=== PATIENT | female | born 1955 | race Caucasian/White ===

== ENCOUNTER 2016-10-20 11:36 | Inpatient (IN) | payer MEDICARE ==
[~2016-10-20] VITALS: Ht 144.8 cm; Wt 48.5 kg
[~2016-10-20 11:36] MED LIST: ASPI81EC97 PO; CLON0.1T78 PO; INSU100S22 SC; SEVE800T PO; SIMV20TA6 PO; [UNRECOGNIZED DRUG - CODE] PO
[2016-10-20 11:44] VITALS: BP 155/77
--- NOTE | 2016-10-20 11:57 | NUR ---
Patient ambulated with assistance to bed 3.
--- NOTE | 2016-10-20 12:23 | NUR ---
61F C/O BLUNT HEAD TRAUMA, TO FOREHEAD X 1 DAYS; PT ADMITS FALLING BUT UNABLE TO REMEMBER HOW IT HAPPENED OR WHERE IT HAPPENED; PT HAS HX OF DEMENTIA; ACCORDING TO THE DAUGHTER (MOLINA), HER AND HER FAMILY NOTED HEMATOMAS TO BILATERAL SIDES OF FOREHEAD WITH ECCHYMOSES YESTERDAY AROUND THE TIME PT GOES TO DIALYSIS, TODAY PT AWOKE TODAY WITH BL EYES CLOSED WITH DEEP ECCYHMOSES; ACCORDING TO FAMILY, PT IS WITHIN NORMAL NEURO BASELINE; PT IS AAOX4, PT TALKING IN FULL SENTENCES; NO ACUTE NEURO DEFICITS AT THIS TIME; RR ARE EVEN AND UNLABORED; PT DENIES ANY SOB OR CP, PATIENT DENIES ANY N/V/D; MD ROSS BY BEDSIDE EXAMINING PT
--- NOTE | 2016-10-20 12:25 | NUR ---
PT TO CT VIA CRISPIN WITH SUPPLY CHAIN DIRECTOR
--- NOTE | 2016-10-20 12:37 | NUR ---
PT BACK FROM CT VIA GURDOUGLAS WITH MIDDLEWARE ADMINISTRATOR
[2016-10-20 12:52] LABS: BASOPHILS # (AUTO) 0.1 K/uL (0.00-0.22); BASOPHILS % (AUTO) 0.8 % (0.0-2.0); EOSINOPHILS # (AUTO) 0.5 K/uL (0-0.4); EOSINOPHILS % (AUTO) 7.4 % (0.0-4.0); HEMATOCRIT 35.4 % (36-48); HEMOGLOBIN 11.3 g/dL (12.0-16.0); LYMPHOCYTES # (AUTO) 0.9 K/uL (2.5-16.5); LYMPHOCYTES % (AUTO) 14.7 % (20.5-51.1); MEAN CORPUSCULAR HEMOGLOBIN 28 pg (27-31); MEAN CORPUSCULAR HGB CONC 32 g/dL (33-37); MEAN CORPUSCULAR VOLUME 89 fL (80-94); MONOCYTES # (AUTO) 0.8 K/uL (0.8-1.0); MONOCYTES % (AUTO) 12.4 % (1.7-9.3); NEUTROPHILS # (AUTO) 4.1 K/uL (1.8-7.7); NEUTROPHILS % (AUTO) 64.7 % (42.2-75.2); PLATELET COUNT (AUTO) 143 K/uL (140-450); RED BLOOD CELL COUNT(AUTO) 3.98 MIL/uL (4.20-5.40); RED CELL DISTRIBUTION WIDTH 13.8 % (11.6-13.7); WHITE BLOOD COUNT (AUTO) 6.4 K/uL (4.8-10.8)
--- NOTE | 2016-10-20 12:54 | NUR ---
PT STATES DOES NOT NEED TO URINATE; FAMILY STATES PT IS ON DIALYSIS AND ONLY PRODUCES URINE IN THE MORNING AND AT NIGHT; ER MD DR. MEDINA NOTIFIED; DR. MEDINA STATES NO URINE NEEDED FROM PATIENT AT THIS TIME; PT POSITIONED FOR COMFORT; WILL CONTINUE T O MONITOR.
[2016-10-20 13:01] LABS: ANION GAP 6.8 (8-16); CARBON DIOXIDE 37.1 mmol/L (21-32); CREATININE 3.4 mg/dL (0.6-1.3); POTASSIUM 3.9 mmol/L (3.5-5.1)
--- NOTE | 2016-10-20 13:02 | NUR ---
PATIENT RESTING IN GURNEY; PATIENT DENIES ANY CP, SOB; NO ACUTE NEURO DEFICITS NOTED; PT AAOX4 WITH NO COMPLAINTS
[2016-10-20 13:04] LABS: PROTHROMBIN TIME 11.4 secs (10.8-13.4)
[2016-10-20 13:06] LABS: ALBUMIN 3.3 g/dL (3.4-5.0); TOTAL BILIRUBIN 0.6 mg/dL (0.0-1.0)
--- NOTE | 2016-10-20 13:11 | NUR ---
GARTH PHOENIX RN NOTIFIED JENNIFFER PHOENIX DIRECTOR OF LINE TESTER AND IS AWARE OF SITUATION AND PATIENT...NO FURTHER FOLLOW UP IS NEEDED ACCORDING; PATIENT HAS HX OF FALLS AND WITH DEMENITA; ER MD ROSS NOTIFIED AND AWARE
--- NOTE | 2016-10-20 14:27 | NUR ---
Patient appears to be resting comfortably in bed. Respirations even and unlabored. No acute distress noted. Family by bedside.
[2016-10-20] MEDS ORDERED: ACETAMINOPHEN 325 MG TAB PO PRN (15:30)
[2016-10-20] MEDS ORDERED: ONDANSETRON 4 MG/2 ML VIAL IVP PRN (15:30)
[2016-10-20] MEDS ORDERED: HYDROcodone/APAP 7.5/325 MG 1 TAB PO PRN (15:30)
--- NOTE | 2016-10-20 15:48 | NUR ---
PULSE OX IS 93%-94% ON RA; PATIENT PUT ON OXYGEN 2L NC; MD ABBOTT/RESIDENTS NOTIFIED AND AWARE; S/P OXYGEN ADMINISTRATION, PT'S PULSE OX IS 99%
--- NOTE | 2016-10-20 15:51 | NUR ---
Patient will be admitted to care of Mauro. Admited to TEle. Will go to room 121B. Belongings list completed. Report to Alvaro PUTNAM.
[2016-10-20 16:00] VITALS: BP 187/78
--- NOTE | 2016-10-20 16:00 | NUR ---
PT ARRIVED FROM ER VIA GURNEY, PT IS AAOX4 [place] SPEAKING, ON 02 2L VIA NC, IV TO RIGHT AC 20G SALINE LOCK PATENT AND INTACT, TWO FOREHEAD HEMATOMAS, PT STATES SHE FELL BUT DOESN'T REMEMBER HOW, MULTIPLE SKIN TEAR TO ALL EXTREMITIES PT STATES SHE GETS ITCHY FROM HEMODIALYSIS, INITIAL ASSESSMENT COMPLETED, DAUGHTER RAYMON AT BEDSIDE, ALL SAFETY PRECAOUTIONS MET. CALL LIGHT WITHIN REACH. WILL CONTINUE TO MONITOR.
[2016-10-20] MEDS ORDERED: MECLIZINE 25 MG TAB PO PRN (16:15)
[2016-10-20] MEDS ORDERED: DEXTROSE 50% 50 ML SYR IVP PRN (16:15)
[2016-10-20 16:22] LABS: CHOL/HDL RATIO 2.6 (1-4.5); FREE T4 (FREE THYROXINE) 1.17 ng/dL (0.76-1.46); MAGNESIUM 1.9 mg/dL (1.8-2.4); PHOSPHORUS 3.8 mg/dL (2.5-4.9); THYROID STIMULATING HORMONE 1.16 uIU/mL (0.34-3.74)
[2016-10-20] MEDS: hydrALAZINE 25 MG TAB PO SCH (16:33)
[2016-10-20] MEDS: SEVELAMER CARBONATE 800 MG TAB PO SCH (16:36)
[2016-10-20] MEDS: BLOOD GLUCOSE MONITORING 1 DEV DEV FS SCH ×2 (16:57→21:30)
[2016-10-20] MEDS ORDERED: SEVELAMER HCL 2400 MG PO SCH (17:00)
--- NOTE | 2016-10-20 17:30 | NUR ---
BP REASSESSED 168/73, HR 63MO NOTIFIED, PT CURRENTLY RESTING IN BED, PT STATES NO PAIN. ALL SAFETY PRECAUTIONS MET.
--- NOTE | 2016-10-20 18:15 | NUR ---
CHECKED IN ON PT, PT RESTING COMFORTABLY IN BED EATING DINNER. PT NEEDS ASSISTANCE WITH EATING BECAUSE SHE CANNOT SEE WELL. ALL SAFETY PRECAUTIONS MET, CALL LIGHT WITHIN REACH, WILL CONTINUE TO MONITOR.
--- NOTE | 2016-10-20 19:30 | NUR ---
ENDORSED PLAN OF CARE TO NIGHT NURSE, PT IN STABLE CONDITION, NO S/S OF DISTRESS NOTED, CALL LIGHT WITHIN REACH.
[2016-10-20 20:00] VITALS: BP 164/67
[2016-10-20] MEDS ORDERED: INSULIN GLARGINE HUM REC ANLOG U SCH (21:00)
[2016-10-20] MEDS: INSULIN DETEMIR 100 UNITS/ML 10 ML VIAL SUBQ SCH (21:00)
[2016-10-20] MEDS: DOCUSATE SODIUM 100 MG GELCAP PO SCH (21:37)
[2016-10-20] MEDS: INSULIN LISPRO SLIDING SCALE 100 UNITS/ML VIAL SUBQ PRN (21:40)
--- NOTE | 2016-10-20 21:41 | NUR ---
ULTRASOUND OF CAROTID AND BLE DONE, DUE PO MEDICATION TAKEN, PT SLEEPY, DOESN'T WANT TO EAT AT THIS TIME, HOLD LEVIMIR AT THIS TIME FOR BLOOD SUGAR OF 173, INSULIN COVERAGE GIVEN, ALL NEEDS ATTENDED.
--- NOTE | 2016-10-20 22:10 | NUR ---
WITH ORDER FOR HEMODIALYSIS IN AM BY DR RAPP, [facility] NOTIFIED BY CHARGE NURSE JOSHUA AND SHE SPOKE TO HORACE.
[2016-10-21] VITALS (7 sets, daily range): BP systolic 132–192; BP diastolic 57–92
--- NOTE | 2016-10-21 | NUR ---
PT SLEEPING, EASILY AROUSABLE, VITAL SIGNS TAKEN, BP SLIGHTLY ELEVATED, ASYMPTOMATIC, DENIES ANY PAIN, PT ASKING FOR JUICE, APPLE JUICE GIVEN, TOLERATED WELL, CONTINUE TO MONITOR CLOSELY.
--- NOTE | 2016-10-21 00:15 | NUR ---
REPORT GIVEN TO INDY LOZOYA FOR CONTINUITY OF CARE.
--- NOTE | 2016-10-21 02:30 | NUR ---
SLEEPING. NO RESTLESSNESS.
--- NOTE | 2016-10-21 04:00 | NUR ---
SCD APPLIED TO BILAT LOWER EXTREMITIES, DVT PROPHYLAXIS.
[2016-10-21] MEDS: BLOOD GLUCOSE MONITORING 1 DEV DEV FS SCH ×4 (05:52→20:32)
--- NOTE | 2016-10-21 06:38 | NUR ---
SLEEPING. NEEDS ANTICIPATED AND MET.
--- NOTE | 2016-10-21 07:30 | NUR ---
RECEIVED REPORT FROM PM NURSE FOR CONTINUITY OF CARE. PT ALERT AND ORIENTED X1. PT IS COOPERATIVE. INITIAL ASSESSMENT DONE. RESP EVEN AND UNLABORED. SKIN IS WARM AND DRY. SWELLING AND BRUISING ON BOTH EYES. IV IS PATENT WITH NO REDNESS AND SWELLING. LEFT UPPER ARM DIALYSIS SHUNT, THRILL PRESENT. PLAN OF CARE DISCUSSED. PT VERBALIZED UNDERSTANDING. SAFETY MEASURES IN PLACED. CALL LIGHT WITHIN REACH. BED ON LOW POSITION. WILL CONTINUE TO MONITOR. Addendum: 10/21/16 at 1911 by Ori Ralph RN PT HAS ABRASIONS THROUGHOUT THE BODY. HEMATOMA ON LEFT FOREHEAD.
[2016-10-21] MEDS: DOCUSATE SODIUM 100 MG GELCAP PO SCH ×2 (08:17→20:39)
[2016-10-21] MEDS: SEVELAMER CARBONATE 800 MG TAB PO SCH ×3 (08:17→16:40)
[2016-10-21] MEDS: hydrALAZINE 25 MG TAB PO SCH ×3 (08:18→16:41)
[2016-10-21] MEDS: SIMVASTATIN 20 MG TAB PO SCH (08:19)
[2016-10-21] MEDS ORDERED: cloNIDine 0.1 MG TAB PO SCH (09:00)
--- NOTE | 2016-10-21 10:00 | NUR ---
ECHOCARDIOGRAM AT BEDSIDE.
--- NOTE | 2016-10-21 10:39 | NUR ---
REASSESSED PT'S BP, 183/79. NOTIFIED DR RAPP. PRN CLONIDINE ORDER RECEIVED. DIALYSIS NURSE TO ARRIVE BETWEEN 12-1 FOR DIALYSIS.
[2016-10-21] MEDS ORDERED: cloNIDine 0.1 MG TAB PO PRN (10:45)
--- NOTE | 2016-10-21 10:57 | NUR ---
CALLED [facility] AND SPOKE WITH DANIEL. SHE SAID THE REVIEW JUST GOES TO HER, NOT THE [facility]. FAXED INITIAL REVIEW TO [phone]. PHONE DANIEL [phone]
--- NOTE | 2016-10-21 11:19 | NUR ---
PATIENT HAS BEEN SCREENED AND CATEGORIZED HIGH NUTRITION RISK. PATIENT WILL BE SEEN WITHIN 1-2 DAYS OF ADMISSION. 10/21/16-10/22/[address]
[2016-10-21] MEDS: INSULIN LISPRO SLIDING SCALE 100 UNITS/ML VIAL SUBQ PRN ×2 (12:02→20:40)
--- NOTE | 2016-10-21 12:59 | NUR ---
TELEPHONE CONSENT FOR HEMODIALYSIS OBTAINED FROM DAUGHTER MOLINA KAM [phone] BY MYSELF AND INDY ADAM.
--- NOTE | 2016-10-21 13:12 | NUR ---
DIALYSIS NURSE AT BEDSIDE.
--- NOTE | 2016-10-21 13:48 | NUR ---
10/21/16 RD INITIAL ASSESSMENT COMPLETED PLEASE REFER TO NUTRITION ASSESSMENT UNDER CARE ACTIVITY FOR ESTIMATED NUTRITIONAL NEEDS. 1. CHANGE DIET TO - RENAL 80 G PROTEIN, 60 G CONSISTENT CARBOHYDRATE, PUREE DIET 2. ADD NEPHROVITE 1X/DAILY 3. RD TO FOLLOW-UP 3-5 DAYS, MODERATE RISK SALVATORE IVEY, DON
--- NOTE | 2016-10-21 15:28 | NUR ---
ADULT DIRECTOR ERP TUCKER MORE HERE, DR SALTER CALLED TO NURSING STATION.
--- NOTE | 2016-10-21 16:20 | NUR ---
DIALYSIS DONE. 3100 ML OUT PER MANUFACTURING RECRUITER VU.
--- NOTE | 2016-10-21 17:58 | NUR ---
RAC PIV SITE LEAKING BLOOD, DC'D, CATH TIP INTACT, BLEEDING CONTROLLED, NEW IV STARTED TO RIGHT UPPER ARM 20G, PT SARITHA WELL.
[2016-10-21 18:10] LABS: BASOPHILS # (AUTO) 0.1 K/uL (0.00-0.22); BASOPHILS % (AUTO) 1.4 % (0.0-2.0); EOSINOPHILS # (AUTO) 0.5 K/uL (0-0.4); EOSINOPHILS % (AUTO) 8.3 % (0.0-4.0); HEMATOCRIT 39.7 % (36-48); HEMOGLOBIN 12.9 g/dL (12.0-16.0); LYMPHOCYTES % (AUTO) 14.8 % (20.5-51.1); MEAN CORPUSCULAR HEMOGLOBIN 29 pg (27-31); MEAN CORPUSCULAR HGB CONC 33 g/dL (33-37); MEAN CORPUSCULAR VOLUME 89 fL (80-94); MONOCYTES # (AUTO) 0.9 K/uL (0.8-1.0); MONOCYTES % (AUTO) 13.6 % (1.7-9.3); NEUTROPHILS # (AUTO) 4.1 K/uL (1.8-7.7); NEUTROPHILS % (AUTO) 61.9 % (42.2-75.2); PLATELET COUNT (AUTO) 145 K/uL (140-450); RED BLOOD CELL COUNT(AUTO) 4.46 MIL/uL (4.20-5.40); RED CELL DISTRIBUTION WIDTH 13.6 % (11.6-13.7); WHITE BLOOD COUNT (AUTO) 6.6 K/uL (4.8-10.8)
[2016-10-21 18:29] LABS: ANION GAP 13.4 (8-16); CARBON DIOXIDE 29.5 mmol/L (21-32); CREATININE 2.5 mg/dL (0.6-1.3); MAGNESIUM 1.7 mg/dL (1.8-2.4); POTASSIUM 3.9 mmol/L (3.5-5.1)
--- NOTE | 2016-10-21 19:25 | NUR ---
RECEIVED FROM AM RN IN BED SLEEPING. WAKES UP WHEN TOUCHED. PT. BEING TESTED FOR SWALLOW EVALUATION AT THIS TIME/CECILE. PT. ABLE TO VERBALIZE SIMPLE NEEDS. TELEMETRY MONITORING. FALL PRECAUTIONS. BED ALARM ON.
--- NOTE | 2016-10-21 19:32 | NUR ---
REPORT GIVEN TO PM NURSE DARELL. PT IS IN STABLE CONDITION
--- NOTE | 2016-10-21 19:55 | NUR ---
PER SWALLOW EVALUATION /CECILE PT. CAN SWALLOW AND THAT DIET NEEDS TO BE MECHANICAL SOFT AND THIN LIQUIDS. PT. NEEDS ASSIST IN FEEDING.
[2016-10-21] MEDS: INSULIN DETEMIR 100 UNITS/ML 10 ML VIAL SUBQ SCH (20:36)
[2016-10-21] MEDS: cloNIDine 0.1 MG TAB PO SCH (20:38)
--- NOTE | 2016-10-21 20:39 | NUR ---
CUSTOMS MANAGER NOTE [phone] S: Bedside swallow evaluation complete. Please refer to CUSTOMS MANAGER report for H+P. CUSTOMS MANAGER consulted d/t reports difficulty chewing food. Pt seen at bedside, awake and alert x2. Pleasant and cooperative, Nigerien speaking, able to communicate wants and needs, able to follow 1-step directions. O: Pt seen for swallow evaluation. Pain: No c/o pain. OME: WFL muscle ROM/Tone. DENTITION: Endentulous. CONSISTENCIES EVALUATED: Thin, puree, mech soft, regular texture. ORAL PHASE: Good bolus acceptance/containment. WFL labial seal around straw and spoon. WFL bolus manipulation/mastication of thin, puree, and mech soft. Decreased bolus breakdown of regular texture, slowed oral prep noted. WFL a-p transit of all bolus, no oral residues remained s/p swallow. PHARYNGEAL PHASE: No overt s/sx of aspiration noted w/any tested consistency. Prompt swallow initiation. WFL laryngeal elevation palpated. A: Mild oral impairment 2/2 decreased bolus breakdown of regular solids, WFL pharyngeal phase 2/2 no overt s/sx of aspiration noted. P: Recommend mech soft/chopped + thin liquids for all PO intake w/standard safe swallow precautions. Nursing to continue to follow, ST f/u not indicated. Precautions posted at [facility]: Educated RN Elyssa and pt on recommendations, voiced understanding. G8996: CI (1-19%) G8997: CI (1-19%) G8998: CI (1-19%) Swallow NOMS 6
[2016-10-22] VITALS (7 sets, daily range): BP systolic 111–161; BP diastolic 55–89
--- NOTE | 2016-10-22 00:08 | NUR ---
PT. KEPT CLEAN AND DRY. NEEDS ANTICIPATED AND MET. SLEEPING AT THIS TIME. CALL LIGHT WITH IN REACH.
--- NOTE | 2016-10-22 04:00 | NUR ---
PT. SLEEPING. NO RESTLESSNESS. WAKES UUP EASILY WHEN TOUCHED. TELEMETRY MONITORING.
--- NOTE | 2016-10-22 05:39 | NUR ---
BLOOD SUGAR CHECK PER FINGERSTICK WAS 31.
--- NOTE | 2016-10-22 05:41 | NUR ---
DOUBLE CHECKED BLOOD SUGAR PER FINGERSTICK WAS 27. INFORMED CHARGE NURSE. WILL MEDICATE WITH D50 ORDERED/PROTOCOL. PT. ALERT AND AWAKE AT THIS TIME. ABLE TO VERBALIZE WELL.
[2016-10-22] MEDS: BLOOD GLUCOSE MONITORING 1 DEV DEV FS SCH ×4 (05:49→21:02)
--- NOTE | 2016-10-22 06:06 | NUR ---
BLOOD SUGAR CHECKED EARLIER AND BLOOD SUGAR LOW. INFORMED MD BOWERS RE: HYPOGLYCEMIA AND THAT PT. AWAKE AND ALERT. VERBALIZING WELL. GAVE D50 ORDERED. WILL RE-CHECK SUGAR.
--- NOTE | 2016-10-22 06:17 | NUR ---
BLOOD SUGAR RE-CHECKED PER FINGERSTICK IS 139. PT. AWAKE AND ALERT. NEEDS ALL ANTICIPATED. NO SOB. TELEMETRY MONITORING.
--- NOTE | 2016-10-22 07:27 | NUR ---
REPORT RECIEVED FROM GRAPHIC EDITOR DARELL, PT SLEEPING QUIETLY, RESP EVEN UNLABORED ON ROOM AIR, SKIN WARM DRY COLOR WNL, PT AROUSED EASILY BY VOICE, DENIES PAIN OR DISCOMFORT, PLAN OF CARE DISCUSSED, PT VERBALIZED FULL UNDERSTANDING, CALL REYES WITHIN REACH, SIDE RAILS UP, BED LOCKED IN LOW POSITION, WILL CONTINUE TO MONITOR.
[2016-10-22 07:29] LABS: BASOPHILS # (AUTO) 0.2 K/uL (0.00-0.22); BASOPHILS % (AUTO) 2.4 % (0.0-2.0); EOSINOPHILS # (AUTO) 0.3 K/uL (0-0.4); EOSINOPHILS % (AUTO) 4.4 % (0.0-4.0); HEMATOCRIT 35.1 % (36-48); HEMOGLOBIN 11.7 g/dL (12.0-16.0); LYMPHOCYTES # (AUTO) 1.3 K/uL (2.5-16.5); LYMPHOCYTES % (AUTO) 16.6 % (20.5-51.1); MEAN CORPUSCULAR HEMOGLOBIN 29 pg (27-31); MEAN CORPUSCULAR HGB CONC 33 g/dL (33-37); MEAN CORPUSCULAR VOLUME 88 fL (80-94); MONOCYTES # (AUTO) 0.8 K/uL (0.8-1.0); MONOCYTES % (AUTO) 9.8 % (1.7-9.3); NEUTROPHILS # (AUTO) 5.2 K/uL (1.8-7.7); NEUTROPHILS % (AUTO) 66.8 % (42.2-75.2); PLATELET COUNT (AUTO) 152 K/uL (140-450); RED BLOOD CELL COUNT(AUTO) 3.98 MIL/uL (4.20-5.40); RED CELL DISTRIBUTION WIDTH 13.9 % (11.6-13.7); WHITE BLOOD COUNT (AUTO) 7.8 K/uL (4.8-10.8)
[2016-10-22 07:52] LABS: ANION GAP 11.5 (8-16); CARBON DIOXIDE 29.9 mmol/L (21-32); CREATININE 3.5 mg/dL (0.6-1.3); POTASSIUM 3.4 mmol/L (3.5-5.1)
[2016-10-22 07:58] LABS: MAGNESIUM 1.9 mg/dL (1.8-2.4); PHOSPHORUS 3.5 mg/dL (2.5-4.9)
[2016-10-22] MEDS: DOCUSATE SODIUM 100 MG GELCAP PO SCH ×2 (08:08→21:02)
[2016-10-22] MEDS: SEVELAMER CARBONATE 800 MG TAB PO SCH ×3 (08:08→17:40)
[2016-10-22] MEDS: cloNIDine 0.1 MG TAB PO SCH ×2 (08:09→21:03)
[2016-10-22] MEDS: VIT-B COMP/VIT-C/FOLIC ACID 1 TAB PO SCH (08:10)
[2016-10-22] MEDS: hydrALAZINE 25 MG TAB PO SCH ×3 (08:10→17:00)
[2016-10-22] MEDS: SIMVASTATIN 20 MG TAB PO SCH (08:10)
--- NOTE | 2016-10-22 08:34 | NUR ---
AM MEDS GIVEN, PT ASSISTED WITH BREAKFAST, PT TOOK 95% OF BREAKFAST TRAY, SITTING UP IN BED IN NAD, CALL REYES WITHIN REACH, WILL CONTINUE TO MONTIOR
[2016-10-22] MEDS ORDERED: VIT-B COMP/VIT-C/FOLIC ACID 1 TAB PO SCH (09:00)
--- NOTE | 2016-10-22 09:40 | NUR ---
REPEAT BLOOD PRESSURE 150/59, PT RESTING QUIETLY IN NAD, IV SITE REDRESSED, AND WRAPPED, PT DENIES PAIN OR DISCOMFORT, NO IMMEDIATE NEEDS IDENTIFIED, WILL CONTINUE TO MONITOR.
--- NOTE | 2016-10-22 11:41 | NUR ---
FINGER STICK GLUCOSE 70, PT AROUSES EASILY, RESP EVEN UNLABORED IN NAD, SKIN WARM AND DRY, GRAPE JUICE AND CRAMBERRY JUICE GIVEN, PT SARITHA WELL, DR SALTER NOTIFIED. WILL RECHECK
--- NOTE | 2016-10-22 12:05 | NUR ---
PT TO BEDSIDE, PT AMBULATING DOWN THE HALLWAY
--- NOTE | 2016-10-22 12:30 | NUR ---
REPEAT BLOOD SUGAR 98, PT SITTING UP EATING LUNCH WITH ASSIST
--- NOTE | 2016-10-22 13:09 | NUR ---
PT CONSUMED 90% OF LUNCH TRAY WITH ASSIST. NO SWALLOWING PROBLEM NOTED.
--- NOTE | 2016-10-22 15:34 | NUR ---
PT SITTING UP DRINKING MILK. NO C/O PAIN OR DISCOMFORT, RESP EVEN UNLABORED, REMAINS ON RUBBER AND POUNDER, NO IMMEDIATE NEEDS IDENTIFIED AT THIS TIME, WILL CONTINUE TO MONITOR.
--- NOTE | 2016-10-22 16:45 | NUR ---
FINGER STICK GLUCOSE 108. NO INSULIN NEEDED.
--- NOTE | 2016-10-22 18:28 | NUR ---
PT SITTING UP EATING DINNER, PT ABLE TO SELF FEED WHEN PLACED IN FRONT OF HER. CONSUMED 100%^ OF DINNER.
--- NOTE | 2016-10-22 19:28 | NUR ---
REPORT GIVEN TO GRADE TEACHER NURSE, PT STABLE.
--- NOTE | 2016-10-22 19:30 | NUR ---
RECEIVED REPORT FROM AM NURSE. PT RESTING IN BED, AOX3, ABLE TO VERBALIZE NEEDS. NO S/S OF ACUTE DISTRESS. PERSONNEL SECURITY SPECIALIST IN PLACE. FISTULA NOTED ON LEFT ARM. MULTIPLE BRUISING AND HEMATOMA NOTED ON FACE AND FOREHEAD AND BODY. IV ACCESS ASYMPTOMATIC, PATENT AND INTACT. SALINE LOCKED. DISCUSSED AND REVIEWED PLAN OF CARE WITH PT. PT VERBALIZED UNDERSTANDING, WILL CONTINUE WITH CONSTANT REINFORCEMENT. ALL NEEDS MET. SAFETY MEASURES ENSURED. CALL LIGHT WITHIN REACH. WILL CONTINUE TO MONITOR.
[2016-10-22] MEDS ORDERED: INSULIN DETEMIR 100 UNITS/ML 10 ML VIAL SUBQ SCH ×2 (21:00)
--- NOTE | 2016-10-22 21:30 | NUR ---
BLOOD SUGAR 123, NO INSULIN COVERAGE NEEDED. CALLED DR LANDIN, MADE AWARE OF PT'S BLOOD SUGAR 123 AND DUE 25 UNITS LEVEMIR AT THIS TIME. STATED HE WILL LET ME KNOW WHETHER IT IS OK TO GIVE. HOLDING DUE LEVEMIR AT THIS TIME. ADMINISTERED REMAINING DUE MEDICATIONS WITH EDUCATION. PT VERBALIZED UNDERSTANDING. TOLERATED MEDS WELL. ALL NEEDS MET. SAFETY MEASURES ENSURED. CALL LIGHT WITHIN REACH. WILL CONTINUE TO MONITOR.
--- NOTE | 2016-10-22 23:20 | NUR ---
RECEIVED ORDERS TO GIVE 15 UNITS LEVEMIR SUBQ. RECHEKED BLOOD SUGAR, 116. CALLED DR LANDIN, MADE AWARE OF BLOOD SUGAR 116. STATED IT IS OK TO GIVE. ADMINISTERED 15 UNITS LEVEMIR ORDERED WITH EDUCATION AND EVENING SNACKS. PT VERBALIZED UNDERSTANDING, TOLERATED MED WELL. ALL NEEDS MET. SAFETY MEASURES ENSURED. CALL LIGHT WITHIN REACH. WILL CONTINUE TO MONITOR.
[2016-10-23] VITALS (7 sets, daily range): BP systolic 111–161; BP diastolic 48–79
--- NOTE | 2016-10-23 04:00 | NUR ---
PT SLEEPING COMFORTABLY. ALL NEEDS MET. SAFETY MEASURES ENSURED. CALL LIGHT WITHIN REACH. WILL CONTINUE TO MONITOR.
[2016-10-23] MEDS: BLOOD GLUCOSE MONITORING 1 DEV DEV FS SCH ×5 (06:00→21:58)
--- NOTE | 2016-10-23 06:00 | NUR ---
BLOOD SUGAR 69, SNACKS GIVEN. PT ASYMPTOMATIC, AROUSABLE AND ABLE TO COMMUNICATE WELL. WILL RECHECK BLOOD SUGAR.
[2016-10-23 06:57] LABS: BASOPHILS # (AUTO) 0.2 K/uL (0.00-0.22); BASOPHILS % (AUTO) 1.8 % (0.0-2.0); EOSINOPHILS # (AUTO) 0.5 K/uL (0-0.4); EOSINOPHILS % (AUTO) 5.3 % (0.0-4.0); HEMOGLOBIN 11.1 g/dL (12.0-16.0); LYMPHOCYTES # (AUTO) 1.4 K/uL (2.5-16.5); LYMPHOCYTES % (AUTO) 16.3 % (20.5-51.1); MEAN CORPUSCULAR HEMOGLOBIN 29 pg (27-31); MEAN CORPUSCULAR HGB CONC 33 g/dL (33-37); MEAN CORPUSCULAR VOLUME 90 fL (80-94); MONOCYTES # (AUTO) 0.8 K/uL (0.8-1.0); MONOCYTES % (AUTO) 8.9 % (1.7-9.3); NEUTROPHILS # (AUTO) 5.7 K/uL (1.8-7.7); NEUTROPHILS % (AUTO) 67.7 % (42.2-75.2); PLATELET COUNT (AUTO) 154 K/uL (140-450); RED BLOOD CELL COUNT(AUTO) 3.79 MIL/uL (4.20-5.40); RED CELL DISTRIBUTION WIDTH 13.5 % (11.6-13.7); WHITE BLOOD COUNT (AUTO) 8.6 K/uL (4.8-10.8)
--- NOTE | 2016-10-23 07:00 | NUR ---
BLOOD SUGAR RECHECKED, 92. CONDITION STABLE. ASSISTED PT TO RESTROOM, PT HAD LARGE SOLID BM. PT ASSISTED BACK TO BED, ALL NEEDS MET. SAFETY MEASURES ENSURED. CALL LIGHT WITHIN REACH.
[2016-10-23 07:15] LABS: ANION GAP 12.5 (8-16); CARBON DIOXIDE 27.2 mmol/L (21-32); POTASSIUM 4.7 mmol/L (3.5-5.1)
--- NOTE | 2016-10-23 07:20 | NUR ---
ENDORSED PLAN OF CARE TO AM NURSE. CONDITION STABLE.
--- NOTE | 2016-10-23 07:26 | NUR ---
RECEIVED REPORT FROM PM NURSE FOR CONTINUITY OF CARE. PT ALERT AND ORIENTED X2. PT IS COOPERATIVE, CONFUSED AT TIMES. INITIAL ASSESSMENT DONE. RESP EVEN AND UNLABORED. SKIN IS WARM AND DRY. SWELLING AND BRUISING ON BOTH EYES, PT HAS ABRASIONS THROUGHOUT THE BODY, HEMATOMA ON LEFT FOREHEAD. IV IS PATENT WITH NO REDNESS AND SWELLING, SALINE LOCK. LEFT UPPER ARM DIALYSIS SHUNT, THRILL PRESENT. PLAN OF CARE DISCUSSED. PT VERBALIZED UNDERSTANDING. SAFETY MEASURES IN PLACED. CALL LIGHT WITHIN REACH. BED ON LOW POSITION. WILL CONTINUE TO MONITOR.
[2016-10-23 07:37] LABS: CREATININE 4.6 mg/dL (0.6-1.3)
[2016-10-23] MEDS: SEVELAMER CARBONATE 800 MG TAB PO SCH ×3 (08:16→16:33)
[2016-10-23] MEDS: VIT-B COMP/VIT-C/FOLIC ACID 1 TAB PO SCH (08:16)
[2016-10-23] MEDS: SIMVASTATIN 20 MG TAB PO SCH (08:16)
[2016-10-23] MEDS: DOCUSATE SODIUM 100 MG GELCAP PO SCH ×2 (09:00→22:01)
[2016-10-23] MEDS: cloNIDine 0.1 MG TAB PO SCH ×2 (09:00→22:04)
[2016-10-23] MEDS: hydrALAZINE 25 MG TAB PO SCH ×3 (09:00→16:33)
--- NOTE | 2016-10-23 09:06 | NUR ---
REPEAT BP 124/74. HELD CLONIDINE, HYDRALAZINE. DR SALTER AWARE. PT 1 EPISODE OF LOOSE STOOLS THIS MORNING, COLACE HELD.
--- NOTE | 2016-10-23 11:00 | NUR ---
PT'S DAUGHTER CALLED TO CHECK ON MOTHER'S STATUS.
--- NOTE | 2016-10-23 11:05 | NUR ---
[facility] AT BEDSIDE.
--- NOTE | 2016-10-23 12:00 | NUR ---
BLOOD GLUCOSE AT 44. PT IS AWAKE, ALERT, AND ORIENTED. NO SIGNS OF DISTRESS. SKIN IS WARM AND DRY, NO DIAPHORESIS NOTED. 2 BOXES OF JUICE GIVEN IMMEDIATELY. WILL NOTIFY
--- NOTE | 2016-10-23 12:30 | NUR ---
RECHECKED BLOOD GLUCOSE AT 61. PT EATING LUNCH AT THIS TIME. NOTIFIED DR SALTER. WILL RECHECK AFTER PT EATS LUNCH.
--- NOTE | 2016-10-23 13:30 | NUR ---
PT CONSUME 100% OF HER LUNCH TRAY, WITH SOME ASSIST. RECHECKED BLOOD GLUCOSE AT 148. PT RESTING COMFORTABLY. MEDICATION GIVEN, TOLERATED WELL. PT DENIES PAIN OR DISCOMFORT. NO SIGNS OF DISTRESS. REMAIN ON DIRECTOR OF PROCUREMENT. CALL REYES WITHIN REACH. BED LOCKED ON LOW POSITION. WILL CONTINUE TO MONITOR.
--- NOTE | 2016-10-23 16:36 | NUR ---
PT SITTING COMFORTABLY. DENIES ANY PAIN OR DISCOMFORT. NO SIGN OF SHORTNESS OF BREATH, RESTLESSNESS OR DISCOMFORT. SAFETY MEASURES IN PLACED. WILL CONTINUE TO MONITOR.
--- NOTE | 2016-10-23 17:18 | NUR ---
PT AMBULATED TO THE RESTROOM WITH ASSIST. PT HAD BM. ASSISTED BACK TO BED. SAFETY MEASURE IN PLACED. WILL CONTINUE TO MONITOR.
--- NOTE | 2016-10-23 19:22 | NUR ---
REPORT GIVEN TO BUTTONHOLE MARKER NURSE, PT STABLE.
--- NOTE | 2016-10-23 19:36 | NUR ---
DIALYSIS NURSE HORACE BEAR CALLED AND NOTIFIED OF HEMODIALYSIS ORDER FOR TOMORROW.
--- NOTE | 2016-10-23 19:37 | NUR ---
RECEIVED PT FROM [place] RN PT ARMENIAN ARMENIAN SPEAKER AAOX2 HX DEMENTIA, ON TELEMETRY SR PAC, RACUM SIGN ON BILATERAL EYES S/P FALL HEMATOMA ON LEFT FOREHEAD, AND BRUISES IN DIFFERENT BODY PART COOPERATIVE TO FOLOW ORDER AV SHUNT ON LEFT UA AND IV PATENT ON RT AC INITIAL ASSESSMENT DONE
[2016-10-23] MEDS ORDERED: INSULIN DETEMIR 100 UNITS/ML 10 ML VIAL SUBQ SCH (21:00)
--- NOTE | 2016-10-23 21:30 | NUR ---
BLOOD SUGAR TEST 88 PT IS PROVIDE WITH SNACK PT HUNGRY, REPOSITIONED Q2H
[2016-10-24] VITALS: BP 146/95
--- NOTE | 2016-10-24 | NUR ---
PT MONITORING CLOSE NOT DISTRESS AT THIS TIME ON TELE SR
[2016-10-24 04:00] VITALS: BP 126/55
--- NOTE | 2016-10-24 04:00 | NUR ---
SPONGE BATH GIVEN LINEN CHANGED COOPERATIVE NOT PAIN
[2016-10-24 06:17] LABS: BASOPHILS # (AUTO) 0.2 K/uL (0.00-0.22); BASOPHILS % (AUTO) 2.1 % (0.0-2.0); EOSINOPHILS # (AUTO) 0.4 K/uL (0-0.4); EOSINOPHILS % (AUTO) 3.5 % (0.0-4.0); HEMATOCRIT 32.8 % (36-48); HEMOGLOBIN 10.9 g/dL (12.0-16.0); LYMPHOCYTES # (AUTO) 1.3 K/uL (2.5-16.5); MEAN CORPUSCULAR HEMOGLOBIN 30 pg (27-31); MEAN CORPUSCULAR HGB CONC 33 g/dL (33-37); MEAN CORPUSCULAR VOLUME 89 fL (80-94); MONOCYTES # (AUTO) 0.6 K/uL (0.8-1.0); MONOCYTES % (AUTO) 5.9 % (1.7-9.3); NEUTROPHILS # (AUTO) 7.7 K/uL (1.8-7.7); NEUTROPHILS % (AUTO) 75.5 % (42.2-75.2); PLATELET COUNT (AUTO) 155 K/uL (140-450); RED BLOOD CELL COUNT(AUTO) 3.66 MIL/uL (4.20-5.40); RED CELL DISTRIBUTION WIDTH 13.5 % (11.6-13.7); WHITE BLOOD COUNT (AUTO) 10.2 K/uL (4.8-10.8)
[2016-10-24 06:31] LABS: CREATININE 5.7 mg/dL (0.6-1.3)
[2016-10-24] MEDS: BLOOD GLUCOSE MONITORING 1 DEV DEV FS SCH ×4 (07:36→21:48)
--- NOTE | 2016-10-24 07:38 | NUR ---
BLOOD SUGAR TEST 127 PT IS ENDORSED TO LASHAUN FOR CONTINUITY OF CARE
--- NOTE | 2016-10-24 07:39 | NUR ---
RECEIVED BEDSIDE REPORT FORM AUTOMOBILE SERVICE WRITER RN. PATIENT AWAKE AND ALERT, NO SIGNS OF ACUTE DISTRESS. BOWEL SOUNDS ACTIVE IN ALL 4 QUADRANTS. BOWEL AND BLADER INCONTINENCE. SKIN INTACT. BEDREST, HOWEVER AMBULATES WITH WALKER AT HOME. PATIENT DENIES PAIN AT THIS TIME. IV PATENT AND ASYMPTOMATIC. RE-ORIENTED TO HOSPITAL AND TO UNIT, PATIENT VERBALIZES UNDERSTANDING. BED IN LOW POSITION WITH BILATERAL HALF SIDE RAILS UP, BED ALARM ON AND CALL LIGHT WITHIN REACH. WILL CONTINUE TO MONITOR.
[2016-10-24 08:00] VITALS: BP 148/75
[2016-10-24] MEDS: DOCUSATE SODIUM 100 MG GELCAP PO SCH ×2 (08:47→21:42)
[2016-10-24] MEDS: cloNIDine 0.1 MG TAB PO SCH ×2 (08:47→21:43)
[2016-10-24] MEDS: SIMVASTATIN 20 MG TAB PO SCH (08:48)
[2016-10-24] MEDS: VIT-B COMP/VIT-C/FOLIC ACID 1 TAB PO SCH (08:48)
[2016-10-24] MEDS: hydrALAZINE 25 MG TAB PO SCH ×3 (08:48→17:14)
[2016-10-24] MEDS: SEVELAMER CARBONATE 800 MG TAB PO SCH ×3 (08:48→17:14)
--- NOTE | 2016-10-24 09:23 | NUR ---
RECEIVED NEW SOCIAL SERVICE ORDERS FOR HOME SAFETY EVAL AND FRONT WHEEL WALKER UPON DISCHARGE, NOTED.
--- NOTE | 2016-10-24 09:49 | NUR ---
SS NOTE: I SPOKE WITH [facility] ENID HAQ ([phone]) TO FOLLOW UP REGARDING PT'S CASE. HE STATED THAT THERE IS HISTORY WITH THIS PT AND HER FAMILY. HE ALSO STATED THAT PT SHOULD BE SAFE TO GO HOME AND IS IN AGREEMENT WITH THE PHYSICIAN'S ORDER FOR A HOME HEALTH SAFETY EVAL. HE REPORTED THAT HE WILL FOLLOW UP WITH PT AT HOME.
--- NOTE | 2016-10-24 10:04 | NUR ---
SPOKE WITH MADI FROM [facility], FOR HOME HEALTH. SHE SAID TO FAXED ORDER, FACE SHEET , H&P AND MED LIST TO HER AT [phone]. SPOKE WITH CHUY SANCHEZ AT [facility]. I FAXED CONCURRENT REVIEW TO HER AT [phone]. SHE SAID SHE WOULD TELL ME WHICH HOME HEALTH THEY WILL SET UP. PHONE [phone].
[2016-10-24 12:00] VITALS: BP 95/42
--- NOTE | 2016-10-24 12:20 | NUR ---
PATIENT BLOOD PRESSURE 95/42 AND PULSE 59, WILL HOLD APRESOLINE SCHEDULED AT 1300 AND CONTINUE TO MONITOR.
--- NOTE | 2016-10-24 12:21 | NUR ---
PT TO RECEIVE HEMODIALYSIS AT 1300, WILL HOLD 1200 RENVELA.
[2016-10-24] MEDS: INSULIN LISPRO SLIDING SCALE 100 UNITS/ML VIAL SUBQ PRN ×2 (12:27→22:05)
--- NOTE | 2016-10-24 12:52 | NUR ---
DIALYSIS NURSE ARRIVED, REPORT AND ORDER GIVEN. PT AWAKE AND ALERT, NO SIGNS OF ACUTE DISTRESS. BEGINNING DIALYSIS.
--- NOTE | 2016-10-24 14:35 | NUR ---
PT NOTES CHART REVIEWED, BUT UNABLE TO SEE PATIENT FOR PHYSICAL THERAPY IN AFTERNOON D/T HAVING HD PROCEDURE, WILL FOLLOW UP PATIENT TOMORROW IF POSSIBLE. PVEx1 Addendum: 10/24/16 at 1528 by Esperanza Ponce PT PHYSICAL THERAPY CO-SIGN The Physical Therapy Progress Notes documented by Visual Merchandising Director have been reviewed. Reviewed/Co-Signed by: Esperanza Ponce PT Documentation Done by: RAYMON LOPEZ PTA
--- NOTE | 2016-10-24 14:55 | NUR ---
RECEIVED AM LABS FROM DR SAMSON, NOTED.
--- NOTE | 2016-10-24 15:40 | NUR ---
PATIENT FINISHED WITH DIALYSIS. 2L TAKEN REMOVED. PT AWAKE AND ALERT, NO SIGNS OF ACUTE DISTRESS. BED IN LOW POSITION WITH BILATERAL HALF SIDE RAILS UP, BED ALARM ON, WILL CONTINUE TO MONITOR.
[2016-10-24 16:00] VITALS: BP 130/68
--- NOTE | 2016-10-24 16:32 | NUR ---
SPOKE WITH DANIEL FROM [facility]. THE HOME HEALTH FOR THIS PATIENT FOR SAFETY EVAL WILL BE [facility] PHONE [phone].
--- NOTE | 2016-10-24 17:44 | NUR ---
PT SITTING UPRIGHT IN BED RESTING COMFORTABLY, NO SIGNS OF ACUTE DISTRESS. BED IN LOW POSITION, BED ALARM ON, WITH BILATERAL HALF SIDE RAILS UP, CALL LIGHT WITHIN REACH. WILL CONTINUE TO MONITOR.
--- NOTE | 2016-10-24 19:20 | NUR ---
PT AWAKE AND ALERT, NO SIGNS OF ACUTE DISTRESS. ENDORSED TO PATIENT BILLER NURSE FOR CONTINUITY OF CARE.
--- NOTE | 2016-10-24 19:23 | NUR ---
RECEIVED REPORT FROM DAY RN. PT SLEEPING IN BED. AAOX1. NO S/S OF ACUTE DISTRESS. FLACC-0. IV SITE PATENT AND INTACT. BRUIT AND THRILL PRESENT. PLAN OF CARE DISCUSSED WITH PT. PT UNABLE TO VERBALIZE UNDERSTANDING. CALL LIGHT WITHIN REACH. SAFETY MEASURES ENSURED. WILL CONTINUE TO MONITOR.
[2016-10-24 20:00] VITALS: BP 143/70
--- NOTE | 2016-10-24 21:43 | NUR ---
PM MEDS GIVEN WITH EDUCATION. PT UNABLE TO VERBALIZE UNDERSTANDING. PT TOLERATED WELL. WILL CONTINUE TO MONITOR.
[2016-10-25] VITALS: BP 145/60
--- NOTE | 2016-10-25 00:48 | NUR ---
PT SLEEPING IN BED. NO S/S OF ACUTE DISTRESS. CALL LIGHT WITHIN REACH. SAFETY MEASURES ENSURED. WILL CONTINUE TO MONITOR.
--- NOTE | 2016-10-25 02:22 | NUR ---
PT SLEEPING IN BED. NO S/S OF ACUTE DISTRESS. WILL CONTINUE TO MONITOR.
[2016-10-25 03:54] VITALS: BP 148/74
--- NOTE | 2016-10-25 04:10 | NUR ---
PT SITTING UP IN BED. NO S/S OF ACUTE DISTRESS. WILL CONTINUE TO MONITOR.
[2016-10-25 06:03] LABS: BASOPHILS # (AUTO) 0.2 K/uL (0.00-0.22); BASOPHILS % (AUTO) 1.7 % (0.0-2.0); EOSINOPHILS # (AUTO) 0.3 K/uL (0-0.4); EOSINOPHILS % (AUTO) 2.8 % (0.0-4.0); HEMOGLOBIN 11.2 g/dL (12.0-16.0); LYMPHOCYTES # (AUTO) 0.6 K/uL (2.5-16.5); LYMPHOCYTES % (AUTO) 6.2 % (20.5-51.1); MEAN CORPUSCULAR HEMOGLOBIN 29 pg (27-31); MEAN CORPUSCULAR HGB CONC 33 g/dL (33-37); MEAN CORPUSCULAR VOLUME 88 fL (80-94); MONOCYTES % (AUTO) 9.5 % (1.7-9.3); NEUTROPHILS # (AUTO) 8.4 K/uL (1.8-7.7); NEUTROPHILS % (AUTO) 79.8 % (42.2-75.2); PLATELET COUNT (AUTO) 137 K/uL (140-450); RED BLOOD CELL COUNT(AUTO) 3.85 MIL/uL (4.20-5.40); RED CELL DISTRIBUTION WIDTH 13.7 % (11.6-13.7)
[2016-10-25] MEDS: BLOOD GLUCOSE MONITORING 1 DEV DEV FS SCH ×3 (06:11→16:51)
[2016-10-25 06:48] LABS: ANION GAP 13.2 (8-16); CARBON DIOXIDE 29.5 mmol/L (21-32); CREATININE 3.9 mg/dL (0.6-1.3); POTASSIUM 4.7 mmol/L (3.5-5.1)
--- NOTE | 2016-10-25 07:20 | NUR ---
ENDORSED PLAN OF CARE TO DAY RN. PT REMAINS STABLE.
--- NOTE | 2016-10-25 07:21 | NUR ---
RECEIVED BEDSIDE REPORT FROM GI TECHNICIAN NURSE. PT AWAKE AND ALERT, NO SIGNS OF ACUTE DISTRESS. PT ON ROOM AIR. BOWEL SOUNDS ACTIVE IN ALL 4 QUADRANTS, BOWEL AND BLADDER INCONTINENCE. SKIN INTACT WITH BILATERAL BRUISING AROUND EYES AND LARGE BUMP ON LEFT ANTERIOR UPPER FOREHEAD. PT DENIES PAIN AT THIS TIME. IV PATENT AND ASYMPTOMATIC. RE-ORIENTED PATIENT TO HOSPITAL AND TO UNIT, PATIENT VERBALIZES UNDERSTANDING. BED IN LOW POSITION WITH BILATERAL HALF SIDE RAILS UP, BED ALARM ON, CALL LIGHT WITHIN REACH. WILL CONTINUE TO MONITOR. Addendum: 10/25/16 at 1025 by Karin Givens RN RECEIVED BEDSIDE REPORT FROM GI TECHNICIAN NURSE. PT AWAKE AND ALERT, NO SIGNS OF ACUTE DISTRESS. PT ON ROOM AIR. BOWEL SOUNDS ACTIVE IN ALL 4 QUADRANTS, BOWEL AND BLADDER INCONTINENCE. SKIN INTACT WITH BILATERAL BRUISING AROUND EYES AND LARGE BUMP ON LEFT ANTERIOR UPPER FOREHEAD. PT DENIES PAIN AT THIS TIME. IV PATENT AND ASYMPTOMATIC. FISTULA ON LEFT ARM. RE-ORIENTED PATIENT TO HOSPITAL AND TO UNIT, PATIENT VERBALIZES UNDERSTANDING. BED IN LOW POSITION WITH BILATERAL HALF SIDE RAILS UP, BED ALARM ON, CALL LIGHT WITHIN REACH. WILL CONTINUE TO MONITOR.
[2016-10-25 07:40] LABS: WHITE BLOOD COUNT (AUTO) 10.5 K/uL (4.8-10.8)
[2016-10-25 08:00] VITALS: BP 185/73
[2016-10-25] MEDS ORDERED: ECOTRIN 81 MG TABEC PO SCH (09:00)
[2016-10-25] MEDS: VIT-B COMP/VIT-C/FOLIC ACID 1 TAB PO SCH (09:26)
[2016-10-25] MEDS: SEVELAMER CARBONATE 800 MG TAB PO SCH ×2 (09:27→12:42)
[2016-10-25] MEDS: DOCUSATE SODIUM 100 MG GELCAP PO SCH (09:27)
[2016-10-25] MEDS: SIMVASTATIN 20 MG TAB PO SCH (09:28)
[2016-10-25] MEDS: cloNIDine 0.1 MG TAB PO SCH (09:28)
[2016-10-25] MEDS: hydrALAZINE 25 MG TAB PO SCH ×2 (09:28→12:42)
--- NOTE | 2016-10-25 10:30 | NUR ---
PT RESTING COMFORTABLY IN BED, NO SIGNS OF ACUTE DISTRESS. BED IN LOW POSITION WITH BILATERAL HALF SIDE RAILS UP, BED ALARM ON, CALL LIGHT WITHIN REACH, WILL CONTINUE TO MONITOR.
[2016-10-25 12:00] VITALS: BP 136/80
--- NOTE | 2016-10-25 12:01 | NUR ---
FAXED CONCURRENT REVIEW TO [facility] [phone] [phone]
[2016-10-25] MEDS: INSULIN LISPRO SLIDING SCALE 100 UNITS/ML VIAL SUBQ PRN (12:30)
--- NOTE | 2016-10-25 12:45 | NUR ---
PT SITTING UPRIGHT IN BED EATING LUNCH, NO SIGNS OF ACUTE DISTRESS. BED IN LOS POSITION WITH BILATERAL HALF SIDE RAILS UP, CALL LIGHT WITHIN REACH AND BED ALARM ON. WILL CONTINUE TO MONITOR.
--- NOTE | 2016-10-25 14:00 | NUR ---
PT SLEEPING, NO SIGNS OF ACUTE DISTRESS. BED IN LOW POSITION WITH BILATERAL HALF SIDE RAILS UP, CALL LIGHT WITHIN REACH, BED ALARM ON. WILL CONTINUE TO MONITOR.
[2016-10-25 16:00] VITALS: BP 123/74
--- NOTE | 2016-10-25 17:00 | NUR ---
PT BLOOD SUGAR 193. DID NOT ADMINISTER INSULIN BECAUSE THE DINNER TRAYS HAD NOT ARRIVED AND PATIENT IS DISCHARGING. EXPLAINED TO DAUGHTER TO RE-CHECK PATIENT BLOOD SUGAR AT HOME AND ADMINISTER INSULIN IF NEEDED. DAUGHTER VERBALIZED UNDERSTANDING.
--- NOTE | 2016-10-25 17:20 | NUR ---
PT AWAKE AND ALERT, NO SIGNS OF ACUTE DISTRESS. BOWEL SOUNDS ACTIVE IN ALL 4 QUADRANTS. MULTIPLE SKIN TEARS AND BRUISING, PHOTOS TAKEN. PT DENIES PAIN AT THIS TIME. PT AMBULATORY WITH ASSIST. PT INCONTINENT. EDUCATED PATIENT AND FAMILY ON SIGNS AND SYMPTOMS OF INFECTION AND WORSENING CONDITION AND TO GO TO ER IF ANY ARE INDICATED. INFORMED PT AND FAMILY OF RESUMING LIGHT ACTIVITY AT HOME, FOLLOW UP APPOINTMENT WITH PCP, INFORMATION OF DISCONTINUATION OF LANTUS AND CONTINUATION OF PREVIOUS MEDICATIONS, INFORMATION OF CONTINUATION OF DIALYSIS AND CARE FOR DIABETES AND HYPOGLYCEMIA, PATIENT AND FAMILY VERBALIZED UNDERSTANDING. INFORMED FAMILY AND PATIENT OF SAFETY EVAL NURSE TO COME TO HOME. FAMILY AND PATIENT VERBALIZED UNDERSTANDING. TOOK OFF TELE MONITOR, D/C'D IV AND CUT OFF WRIST BANDS. WHEELED PATIENT OUT TO FRONT LOBBY TO GO HOME VIA PRIVATE AUTO WITH FAMILY.
== END 2016-10-25 17:20 | disposition home or self-care (01) | DRG 194 ==
LOC: MED 11:36 → MTU 15:32
PROVIDERS: ADMIT Family Medicine; ATTEND Family Medicine
PROC: 5A1D60Z (ICD-10-PCS; principal; 2016-10-21)
DX: I13.2 Hypertensive heart and chronic kidney disease with heart failure and with stage 5 chronic kidney disease, or end stage renal disease (principal); D68.59 Other primary thrombophilia; N18.6 End stage renal disease; E11.22 Type 2 diabetes mellitus with diabetic chronic kidney disease; E11.51 Type 2 diabetes mellitus with diabetic peripheral angiopathy without gangrene; E44.0 Moderate protein-calorie malnutrition; E11.649 Type 2 diabetes mellitus with hypoglycemia without coma; I50.43 Acute on chronic combined systolic (congestive) and diastolic (congestive) heart failure; F33.0 Major depressive disorder, recurrent, mild; E87.5 Hyperkalemia; G90.9 Disorder of the autonomic nervous system, unspecified; E11.65 Type 2 diabetes mellitus with hyperglycemia; H54.0 Blindness, both eyes; L29.9 Pruritus, unspecified; E11.319 Type 2 diabetes mellitus with unspecified diabetic retinopathy without macular edema; F01.50 Vascular dementia, unspecified severity, without behavioral disturbance, psychotic disturbance, mood disturbance, and anxiety; W19.XXXA Unspecified fall, initial encounter; D63.1 Anemia in chronic kidney disease; E78.5 Hyperlipidemia, unspecified; S00.83XA Contusion of other part of head, initial encounter; I35.0 Nonrheumatic aortic (valve) stenosis; E87.1 Hypo-osmolality and hyponatremia; Z99.2 Dependence on renal dialysis; Z79.4 Long term (current) use of insulin; Z86.73 Personal history of transient ischemic attack (TIA), and cerebral infarction without residual deficits
CPT/HCPCS: 36415; 70450; 70486; 71010; 80048; 80053; 82140; 82150; 82948; 83036; 83690; 83735; 83880; 84100; 84439; 84443; 84484; 85025; 85610; 85730; 87081; 92610; 93005; 93880; 93925; 93970; 96372; 97110; 97116; 97530; 97799; 99285; J1815; J7030; Q0092

== ENCOUNTER 2017-04-03 19:07 | Inpatient (IN) | payer MEDICAID, MEDICARE ==
[~2017-04-03] VITALS: Ht 147.3 cm; Wt 45.6 kg
[~2017-04-03 19:07] MED LIST changes: -ASPI81EC97 PO; -INSU100S22 SC
[2017-04-03 19:17] VITALS: BP 110/47
--- NOTE | 2017-04-03 21:57 | NUR ---
61Y F BIB FAMILY C/O PAIN TO THE LEFT UPPER ARM X 1 DAY. PT HAS DIALYSIS ON MON, WED, FRI. FAMILY STATES WHEN THEY WERE SEEN TODAY, FOR DIALYSIS, THAT THE NURSE SAID THE THE AREA LOOKS TO BE INFECTED FROM THE PT PICKING AT THE AREA. DAUGHTER STATES PT IS HER MOM, SHE IS NONVERBAL. PT AMBULATES WITH ASSISTANCE FROM FAMILY.
--- NOTE | 2017-04-03 22:44 | NUR ---
Annabel arambula in [facility] - 04/04/17 at 0315 by CAM PT CARRIED TO BED 11 BY PARENTS
--- NOTE | 2017-04-03 22:45 | NUR ---
LEFT ARM NOTED WITH AV FISTULA, PER DAUGHTER WAS REPLACED 3 WEEKS AGO. OPEN SITE NOTED ON LEFT ARM ~ 3CM IN LENGTH ,WITH ERYTHEMA AND EDEMA NOTED, BLEEDING CONTROLLED AT THIS TIME. DENIES FEVER/CHILLS. DAUGHTER REPORTS PT HAS BEEN PICKIN AT SITE
[2017-04-03 22:53] LABS: BASOPHILS # (AUTO) 0.1 K/uL (0.00-0.22); EOSINOPHILS # (AUTO) 0.2 K/uL (0-0.4); EOSINOPHILS % (AUTO) 2.8 % (0.0-4.0); HEMATOCRIT 29.3 % (36-48); HEMOGLOBIN 9.5 g/dL (12.0-16.0); LYMPHOCYTES # (AUTO) 0.9 K/uL (2.5-16.5); LYMPHOCYTES % (AUTO) 11.2 % (20.5-51.1); MEAN CORPUSCULAR HEMOGLOBIN 30 pg (27-31); MEAN CORPUSCULAR HGB CONC 33 g/dL (33-37); MEAN CORPUSCULAR VOLUME 93 fL (80-94); MONOCYTES # (AUTO) 0.9 K/uL (0.8-1.0); NEUTROPHILS # (AUTO) 6.3 K/uL (1.8-7.7); PLATELET COUNT (AUTO) 303 K/uL (140-450); RED BLOOD CELL COUNT(AUTO) 3.16 MIL/uL (4.20-5.40); RED CELL DISTRIBUTION WIDTH 15.4 % (11.6-13.7); WHITE BLOOD COUNT (AUTO) 8.4 K/uL (4.8-10.8)
[2017-04-03 23:03] LABS: CARBON DIOXIDE 35.3 mmol/L (21-32)
[2017-04-03 23:11] LABS: ALBUMIN 3.7 g/dL (3.4-5.0); ANION GAP 12.2 (8-16); CREATININE 2.9 mg/dL (0.6-1.3); POTASSIUM 4.5 mmol/L (3.5-5.1); TOTAL BILIRUBIN 0.7 mg/dL (0.0-1.0)
[2017-04-03] MEDS ORDERED: LON2.5 PO (23:56)
[2017-04-03] MEDS ORDERED: CLON0.2T47 TD (23:57)
[2017-04-03] MEDS ORDERED: SEVE400T PO (23:59)
[2017-04-03] MEDS ORDERED: HYDR100T79 PO (23:59)
[2017-04-03] MEDS ORDERED: VITD1000 PO (23:59)
[2017-04-04] MEDS ORDERED: AMPICILLIN/SULBACTAM 3 GM in NACL 0.9% 100 ML IV ONE (00:10)
[2017-04-04] MEDS ORDERED: HYDROcodone/APAP 7.5/325 MG 1 TAB PO PRN (00:10)
[2017-04-04] MEDS ORDERED: ONDANSETRON 4 MG/2 ML VIAL IVP PRN (00:10)
[2017-04-04] MEDS ORDERED: ACETAMINOPHEN 325 MG TAB PO PRN (00:10)
[2017-04-04] MEDS ORDERED: AMPICILLIN/SULBACTAM 3 GM VIAL ONE (00:14)
--- NOTE | 2017-04-04 00:33 | NUR ---
Patient will be admitted to care of [facility]. Admited to TELE. Will go to room 117A. Belongings list completed. BEDSIDE Report to BRENNON PUTNAM. IV INFUSING, BRENNON RN MADE AWARE TO FINISH BAG.
[2017-04-04 00:35] VITALS: BP 115/75
--- NOTE | 2017-04-04 00:35 | NUR ---
ADMITTED A 61F FROM ER. CAME BY [place]ISPIN ACCOMPANIED BY FAMILY MEMBER. AWAKE, ALERT,ORIENTED X2. WITH CONFUSION. RAYMON , GRAND DAUGHTER PRESENT , REFUSED TO USE BLUE PHONE TO TRANSLATE. SHE HELPED IN GIVING MEDICAL INFORMATIONS . PT IS LEGALLY BLIND. CAME DUE TO INFECTED LT ARM AV FISTULA.WITH DRESSING. PICTURE TAKEN IN ER. SKIN ARE DRY , WITH MULTIPLE SCRATCHES ON MIRNA ARMS AND LEGS. PT HAS LT CHEST HD CATHETER WITH DRESSING CLEAN AND DRY. PT POSITIONED COMFORTABLY IN BED. UNASYN IVPB STILL INFUSING ON THE RT AC #20, CLEAR AND PATENT. DR. MORENO,RESIDENT MD. CAME IN THE ROOM AND ASSESSED PT AND ABLE TO GET MEDICAL HISTORY ALSO THROUGH THE GRAND DAUGHTER. BED ON LOW POSITION, BED ALARM ON AND CALL LIGHT PLACED WITHIN EASY REACH. INITIATED HIGH RISK FOR FALL PROTOCOL. INSTRUCTED PT TO USE CALL LIGHT . WILL CONTINUE TO MONITOR.
[2017-04-04 00:40] LABS: PROTHROMBIN TIME 10.5 secs (10.8-13.4)
--- NOTE | 2017-04-04 00:45 | NUR ---
COLLECTED MRSA NARES SPECIMEN . SENT TO LAB.
[2017-04-04 01:08] LABS: CHOL/HDL RATIO 2.8 (1-4.5); FREE T4 (FREE THYROXINE) 1.09 ng/dL (0.76-1.46); MAGNESIUM 2.2 mg/dL (1.8-2.4); PHOSPHORUS 3.4 mg/dL (2.5-4.9); THYROID STIMULATING HORMONE 0.81 uIU/mL (0.34-3.74)
[2017-04-04] MEDS ORDERED: cloNIDine-TTS2 0.2 MG/24 HR 1 EA PATCH TD SCH (01:40)
[2017-04-04] MEDS ORDERED: VITAMIN D 400 IU TAB PO SCH (01:40)
[2017-04-04] MEDS ORDERED: DEXTROSE 50% 50 ML SYR IVP PRN (02:00)
[2017-04-04] MEDS ORDERED: INSULIN LISPRO SLIDING SCALE 100 UNITS/ML VIAL SUBQ PRN (02:00)
--- NOTE | 2017-04-04 02:00 | NUR ---
MADE ROUND. ASLEEP. NO S/S OF ANY DISCOMFORT NOTED. BED ALARM STILL ON .
--- NOTE | 2017-04-04 04:01 | NUR ---
MADE ROUNDS. PT ASLEEP. BUT VITAL SIGNS TAKEN. NO C/O ANY PAIN. WILL CONTINUE TO MONITOR.
[2017-04-04 04:10] VITALS: BP 143/64
[2017-04-04 06:39] LABS: BASOPHILS # (AUTO) 0.1 K/uL (0.00-0.22); BASOPHILS % (AUTO) 0.9 % (0.0-2.0); EOSINOPHILS # (AUTO) 0.2 K/uL (0-0.4); EOSINOPHILS % (AUTO) 1.9 % (0.0-4.0); HEMATOCRIT 27.9 % (36-48); HEMOGLOBIN 8.9 g/dL (12.0-16.0); LYMPHOCYTES # (AUTO) 1.3 K/uL (2.5-16.5); LYMPHOCYTES % (AUTO) 13.8 % (20.5-51.1); MEAN CORPUSCULAR HEMOGLOBIN 30 pg (27-31); MEAN CORPUSCULAR HGB CONC 32 g/dL (33-37); MEAN CORPUSCULAR VOLUME 93 fL (80-94); MONOCYTES # (AUTO) 1.1 K/uL (0.8-1.0); MONOCYTES % (AUTO) 12.1 % (1.7-9.3); NEUTROPHILS # (AUTO) 6.5 K/uL (1.8-7.7); NEUTROPHILS % (AUTO) 71.3 % (42.2-75.2); PLATELET COUNT (AUTO) 288 K/uL (140-450); RED BLOOD CELL COUNT(AUTO) 3.01 MIL/uL (4.20-5.40); RED CELL DISTRIBUTION WIDTH 15.2 % (11.6-13.7); WHITE BLOOD COUNT (AUTO) 9.2 K/uL (4.8-10.8)
[2017-04-04] MEDS: BLOOD GLUCOSE MONITORING 1 DEV DEV FS SCH ×2 (06:59→11:49)
--- NOTE | 2017-04-04 06:59 | NUR ---
BLOOD SUGAR WAS CHECKED RESULT 112. NO INSULIN NEEDED.
[2017-04-04] MEDS ORDERED: ERGOCALCIFEROL 50,000 IU SGL PO SCH (07:14)
--- NOTE | 2017-04-04 07:15 | NUR ---
RECEIVED PATIENT REPORT. PATIENT AWAKE, ALERT AND ORIENTED. NO S/S OF DISTRESS. PATIENT ON ROOM AIR. NO SOB. DRESSING NOTED TO THE LEFT AV SHUNT. DRESSING DRY AND INTACT. HD CATHETER WITH CLEAN,DRY AND INTACT DRESSING NOTED TO THE LEFT CHEST. IV LINE NOTED TO THE RIGHT AC SALINE LOCKED. MULTIPLE SKIN TEARS AND SCRATCHES NOTED TO BUE AND BLE. PATIENT ON TELE MONITORING. PATIENT INSTRUCTED TO USE THE CALL LIGHT. BED LOWERED WITH CALL LIGHT WITHIN REACH. WILL CONTINUE TO MONITOR
--- NOTE | 2017-04-04 07:22 | NUR ---
PT ON STABLE CONDITION. SLEPT WELL DURING THE NIGHT. WILL ENDORSED PT TO AM NURSE.
[2017-04-04 08:00] VITALS: BP 109/27
[2017-04-04 08:01] LABS: PHOSPHORUS 4.2 mg/dL (2.5-4.9)
[2017-04-04 08:11] LABS: ANION GAP 14.7 (8-16); CARBON DIOXIDE 32.5 mmol/L (21-32); CREATININE 3.5 mg/dL (0.6-1.3); POTASSIUM 5.2 mmol/L (3.5-5.1)
[2017-04-04] MEDS: SEVELAMER CARBONATE 800 MG TAB PO SCH ×2 (08:24→12:33)
[2017-04-04] MEDS: hydrALAZINE 25 MG TAB PO SCH ×2 (08:26→13:00)
--- NOTE | 2017-04-04 08:56 | NUR ---
CM NOTE INITIAL REVIEW FAXED TO [facility] [phone] PH# [phone] AND TO [facility] [phone] PH# [phone] DORA CAPONE [phone]
[2017-04-04] MEDS ORDERED: MINOXIDIL 2.5 MG TAB PO SCH (09:00)
[2017-04-04] MEDS ORDERED: LACTOBACILLUS RHAMNOSUS GG 1 EACH CAP PO SCH (09:00)
[2017-04-04] MEDS ORDERED: DOCUSATE SODIUM 100 MG GELCAP PO SCH (09:00)
--- NOTE | 2017-04-04 09:18 | NUR ---
PATIENT HAS BEEN SCREENED AND CATEGORIZED HIGH NUTRITION RISK. PATIENT WILL BE SEEN WITHIN 1-2 DAYS OF ADMISSION. 04/04/17-04/05/[address]
--- NOTE | 2017-04-04 10:00 | NUR ---
WOUND EVALUATION NOTE: REASON FOR WOUND EVALUATION:LEFT UPPER ARM AV FISTULA INFECTION COMPLETE SKIN ASSESSMENT DONE ON THIS 61 Y/O FEMALE PATIENT FROM HOME TO [facility], WITH INITIAL DIAGNOSIS OF PAIN ON LEFT UPPER ARM AV FISTULA . PAST MEDICAL HISTORY INCLUDE DEMENTIA, CHF DM CVA, SD AND ESRD WITH HD. ALL ABOVE INFORMATION WAS OBTAINED FROM THE ADMISSION H&P. LABS ARE WBC 8.4, H/H 9.5/29.3, GLUCOSE 211, ALBUMIN 3.7. PATIENT IS AWAKE,SKIN WARM TO TOUCH WNL, TOENAILS ARE SLIGHTLY THICKENED, NO EDEMA, BLE WITH NO HAIR GROWTH AND NORMAL PEDAL PULSES. ABLE TO TURN SELF WITHOUT ASSISTANCE. PLAN OF CARE DISCUSSED WITH PRIMARY RN INTEGUMENTARY: UPPER / LOWER EXTREMITIES AND MID ABDOMINAL- MULTIPLE SCABS, SCARCH WOLFE WITH LARGEST AT ABDOMEN AREA 1.5X2 CM, AREA DRY NO S/S INFECTION. LEFT UPPER ARM AV FISTULA TOWARD DISTAL PORTION WITH 2 OPEN WOUNDS LARGEST MEASURED 0.5X3X0.1, MODERATE AMOUNT OF SANGUINEOUS DRAINAGE AND ERYTHEMA. NO ODOR,PAIN LEVEL 0/10 RECOMMENDATIONS: -CLEANSE LEFT UPPER ARM AV FISTULA WITH NS. PAT DRY, APPLY SILVASORB GEL , COVER WITH ADAPTIC AND DRY DRESSING QD AND PRN IF SOILING. -PAINT MULTIPLE SCABS TO UPPER/ LOWER EXTREMITIES AND ABDOMEN AREAS WITH BETADINE SOLUTION QD AND LEAVE IT OPEN TO AIR. -ASSESS AND MONITOR SKIN CONDITION DURING POSITION CHANGE, PLEASE PAY ATTENTION TO SACROCOCCYX -OFFLOAD BILATERAL HEELS BY PLACING PILLOWS UNDER CALVES AT ALL TIMES, UNLESS OTHERWISE CONTRAINDICATED-KEEP -KEEP SKIN CLEAN AND DRY AT ALL TIMES. RECOMMENDATIONS DISCUSSED WITH PRIMARY RN AND DR. PHILLIPS WILL FOLLOW UP PATIENT Q 7-10 DAYS AND PRN. PLEASE CONTACT WOUND CARE NURSE FOR ANY QUESTIONS AND CHANGES IN WOUND CONDITION.
--- NOTE | 2017-04-04 10:00 | NUR ---
LEFT AV FISTULA WOUND DRESSING CHANGED WITH WOUND CARE NURSEDELROY. PICTURES TAKEN
[2017-04-04] MEDS ORDERED: AMOX-999 PO (10:31)
[2017-04-04] MEDS ORDERED: LACT10CA1 PO (10:33)
--- NOTE | 2017-04-04 11:35 | NUR ---
MADE DR BEAL AWARE OF PATIENT POTASSIUM LEVEL OF 5.2
[2017-04-04 12:00] VITALS: BP 133/54
--- NOTE | 2017-04-04 12:13 | NUR ---
CM NOTE RECEIVED A CALL FROM SWABBER HÉCTOR AND SHE SAID THAT SHE JUST CORRECTED THE PATIENT'S FACESHEET THAT PATIENT APPARENTLY HAS [facility] [place]STEAD OF [place] [facility] WITH [facility] WHICH WAS STATED ON THE ORIGINAL FACESHEET. PER HÉCTOR, SEND REVIEWS TO BOTH [facility] AND [facility]. FAXED INITIAL REVIEW TO [facility] [phone] # [phone] EXT [phone].
[2017-04-04] MEDS ORDERED: FUROSEMIDE 20 MG/2 ML VIAL IVP SCH (14:00)
[2017-04-04] MEDS ORDERED: FUROSEMIDE 40 MG TAB PO SCH (14:15)
--- NOTE | 2017-04-04 15:15 | NUR ---
PATIENT DISCHARGED TO HOME. DISCHARGE INSTRUCTIONS AND DISCHARGE PRESCRIPTIONS GIVEN. PATIENT'S DAUGHTER PRESENT IN THE ROOM AND VERBALIZED UNDERSTANDING. PATIENT AND PATIENT'S DAUGHTER EDUCATED ON HOW TO CARE FOR THE AV FISTULA WOUND. SUPPLIES PROVIDED. IV LINE DISCONTINUED. TELE LEADS TAKEN OFF. PATIENT LEFT WITH ALL HER BELONGINGS AND DISCHARGE PAPERS. PATIENT LEFT IN STABLE CONDITION
[2017-04-04] MEDS ORDERED: AMPICILLIN/SULBACTAM 3 GM in NACL 0.9% 100 ML IV SCH (21:00)
--- NOTE | 2017-04-05 13:34 | NUR ---
CM NOTE CONCURRENT REVIEW FAXED TO [facility] [phone] [place] PH# [phone] EXT [phone] AND TO [facility] [phone] PH# [phone] DORA EXT [phone] Addendum: 04/06/17 at 0735 by Puja Owens CM ОЛЕГ BAZAN
== END 2017-04-04 15:15 | disposition home or self-care (01) | DRG 466 ==
LOC: MED 19:07 → MTU 04-04 00:15
PROVIDERS: ADMIT Family Medicine Sports Medicine; ATTEND Family Medicine Sports Medicine
DX: T82.7XXA Infection and inflammatory reaction due to other cardiac and vascular devices, implants and grafts, initial encounter (principal); N18.6 End stage renal disease; N17.0 Acute kidney failure with tubular necrosis; I50.43 Acute on chronic combined systolic (congestive) and diastolic (congestive) heart failure; D68.59 Other primary thrombophilia; E11.22 Type 2 diabetes mellitus with diabetic chronic kidney disease; F03.90 Unspecified dementia, unspecified severity, without behavioral disturbance, psychotic disturbance, mood disturbance, and anxiety; L03.114 Cellulitis of left upper limb; E11.51 Type 2 diabetes mellitus with diabetic peripheral angiopathy without gangrene; E11.65 Type 2 diabetes mellitus with hyperglycemia; I35.0 Nonrheumatic aortic (valve) stenosis; Z99.2 Dependence on renal dialysis; E78.5 Hyperlipidemia, unspecified; D63.1 Anemia in chronic kidney disease; E87.5 Hyperkalemia; I07.1 Rheumatic tricuspid insufficiency; I13.2 Hypertensive heart and chronic kidney disease with heart failure and with stage 5 chronic kidney disease, or end stage renal disease; Y84.1 Kidney dialysis as the cause of abnormal reaction of the patient, or of later complication, without mention of misadventure at the time of the procedure; Y92.89 Other specified places as the place of occurrence of the external cause
CPT/HCPCS: 36415; 71045; 80048; 80053; 82948; 83036; 83605; 83690; 83735; 83880; 84100; 84439; 84443; 84484; 85025; 85610; 85730; 87040; 87081; 93005; 96365; 99285; J0295; J1815; Q0092

== ENCOUNTER 2017-10-10 00:45 | Inpatient (IN) | payer MEDICARE ==
[~2017-10-10] VITALS: Ht 149.9 cm; Wt 53.1 kg
[~2017-10-10 00:45] MED LIST changes: +AMOX-999 PO; -CLON0.1T78 PO; +CLON0.2T47 TD; +HYDR100T79 PO; +LACT10CA1 PO; +LON2.5 PO; -SIMV20TA6 PO; +VITD1000 PO; -[UNRECOGNIZED DRUG - CODE] PO
--- NOTE | 2017-10-10 00:54 | NUR ---
Patient ambulated to bed 11 with family. RN evaluating patient at bedside.
--- NOTE | 2017-10-10 01:00 | NUR ---
PATIENT IS A 62 Y/O FEMALE WHO PRESENTS TO THE ED C/O TOE PAIN. DAUGHTER STATES THAT PT HAS H/O DIABETES AND DISCOVERED NECROTIC TOE TODAY. PT APPEARS TO BE 7/10 ACHING L 2ND TOE PAIN THAT DOES NOT RADIATE. 2ND LEFT TOE APPEARS NECROTIC, CMS INTACT. PT DENIES CP, SOB, N/V/D. PATIENT HAS SHUNT TO L UPPER ARM. PT AWAKE AND ALERT, RR EVEN/UNLABORED. PT REPOSITIONED FOR COMFORT, BED IN LOWEST POSITION. ER MD DR. PECK NOTIFIED. WILL CONTINUE TO MONITOR.
[2017-10-10 01:12] VITALS: BP 145/69
[2017-10-10] MEDS ORDERED: VANCOMYCIN 1,000 MG in DEXTROSE 5% 250 ML IV ONE (01:30)
[2017-10-10] MEDS ORDERED: PIPERACILLIN/TAZOBACTAM 3.375 GM in DEXTROSE 5% 50 ML IV ONE ×2 (01:30→03:40)
[2017-10-10] MEDS ORDERED: NACL 0.9% 1,000 ML IV ONE (01:30)
--- NOTE | 2017-10-10 01:30 | NUR ---
PATIENT UNABLE TO PRODUCE URINE AT THIS TIME. NO SIGNS OF DISTRESS.
[2017-10-10] MEDS ORDERED: VANCOMYCIN 1,000 MG VIAL ONE (01:38)
[2017-10-10] MEDS ORDERED: PIPERACILLIN/TAZOBACTAM 3.375 GM VIAL IV ONE (01:38)
[2017-10-10 01:51] LABS: BASOPHILS # (AUTO) 0.1 K/uL (0.00-0.22); BASOPHILS % (AUTO) 0.6 % (0.0-2.0); EOSINOPHILS # (AUTO) 0.1 K/uL (0-0.4); EOSINOPHILS % (AUTO) 1.6 % (0.0-4.0); HEMOGLOBIN 12.1 g/dL (12.0-16.0); LYMPHOCYTES # (AUTO) 1.1 K/uL (2.5-16.5); LYMPHOCYTES % (AUTO) 13.3 % (20.5-51.1); MEAN CORPUSCULAR HEMOGLOBIN 29 pg (27-31); MEAN CORPUSCULAR HGB CONC 33 g/dL (33-37); MEAN CORPUSCULAR VOLUME 88.2 fL (80-94); MONOCYTES # (AUTO) 1.3 K/uL (0.8-1.0); MONOCYTES % (AUTO) 14.8 % (1.7-9.3); NEUTROPHILS % (AUTO) 69.7 % (42.2-75.2); PLATELET COUNT (AUTO) 226 K/uL (140-450); WHITE BLOOD COUNT (AUTO) 8.5 K/uL (4.8-10.8)
[2017-10-10 02:02] LABS: ANION GAP 9.7 (8-16); CARBON DIOXIDE 35.5 mmol/L (21-32); CREATININE 3.3 mg/dL (0.6-1.3); POTASSIUM 3.2 mmol/L (3.5-5.1)
[2017-10-10 02:09] LABS: ALBUMIN 2.8 g/dL (3.4-5.0); TOTAL BILIRUBIN 0.4 mg/dL (0.0-1.0)
[2017-10-10 02:11] LABS: PROTHROMBIN TIME 9.5 secs (10.8-13.4)
--- NOTE | 2017-10-10 02:15 | NUR ---
XRAY AT BEDSIDE FOR INTERVENTION.
--- NOTE | 2017-10-10 03:30 | NUR ---
PATIENT RESTING AT THIS TIME. NO SIGNS OF DISTRESS.
[2017-10-10] MEDS ORDERED: DEXT 5% / NACL 0.45% 1,000 ML IV SCH (03:32)
[2017-10-10] MEDS ORDERED: ACETAMINOPHEN 325 MG TAB PO PRN (03:35)
[2017-10-10] MEDS ORDERED: ONDANSETRON 4 MG/2 ML VIAL IVP PRN (03:35)
[2017-10-10] MEDS ORDERED: DEXTROSE 50% 50 ML SYR IVP PRN ×2 (03:40)
[2017-10-10] MEDS ORDERED: VANCOMYCIN HCL 750 MG in DEXTROSE 5% 250 ML IV SCH (03:40)
[2017-10-10 04:00] VITALS: BP 149/82
--- NOTE | 2017-10-10 04:07 | NUR ---
Patient will be admitted to care of DR. MARTINEZ. Admited to TELE. Will go to room 124B. Belongings list completed. Report to RICHELLE PUTNAM.
[2017-10-10 04:36] LABS: CHOL/HDL RATIO 4.2 (1-4.5); FREE T4 (FREE THYROXINE) 1.11 ng/dL (0.76-1.46); MAGNESIUM 2.1 mg/dL (1.8-2.4); PHOSPHORUS 3.7 mg/dL (2.5-4.9); THYROID STIMULATING HORMONE 0.76 uIU/mL (0.34-3.74)
--- NOTE | 2017-10-10 04:40 | NUR ---
PT ARRIVED IN [facility] ACCOMPANIED BY TWO RN'S AT 04:15. RECEIVED REPORT FROM TRACK ANNOUNCER CHARISSE, FOR CONTINUITY OF CARE. PT IS A/OX1, ON ROOM AIR. PT IS ABLE TO MAKE NEEDS KNOWN, ABLE TO FOLLOW COMMANDS. PT IS LETHARGIC. RESPIRATIONS EVEN AND UNLABORED AT THE MOMENT. PT HAS GANGRENE TO LEFT SECOND TOE, OPEN WOUND TO LEFT LOWER EXTREMITY, OPEN WOUND ON FACE, AND MULTIPLE SCABS THROUGHOUT BODY AND PT REPORTS BEING ITCHY. PT HAS 18G IV TO RIGHT FOREARM, ASYMPTOMATIC, INTACT AND PATENT. PT CAME IN SOILED AND SMELLING OF STOOL. CLEANED PT, STOOL WAS DRY AND HARD STICKING TO PT'S BOTTOM, LEGS, LEFT KNEE, RIGHT HEEL AND SOME ON ABDOMEN. CALLED ER WAVE SOLDER OFFBEARER KEVIN TO DISCUSS SITUATION. PICTURES TAKEN OF OPEN WOUNDS. MRSA SWAB OBTAINED AND SENT TO LAB. UNABLE TO FULLY ASSESS PT DUE TO LETHARGIC STATE. WILL OBTAIN HISTORY FROM MEDICAL RECORDS. BP SLIGHTLY ELEVATED, OTHERWISE VITAL SIGNS WITHIN NORMAL LIMITS. PT STABLE, NO SIGNS OF DISTRESS NOTED AT THIS TIME. BED IN LOWEST POSITION, BED ALARM ON. CALL LIGHT WITHIN REACH, WILL CONTINUE TO MONITOR.
[2017-10-10] MEDS: BLOOD GLUCOSE MONITORING 1 DEV DEV FS SCH ×4 (06:50→20:59)
[2017-10-10 07:17] LABS: BASOPHILS # (AUTO) 0.1 K/uL (0.00-0.22); BASOPHILS % (AUTO) 0.6 % (0.0-2.0); EOSINOPHILS # (AUTO) 0.2 K/uL (0-0.4); EOSINOPHILS % (AUTO) 1.6 % (0.0-4.0); HEMOGLOBIN 11.2 g/dL (12.0-16.0); LYMPHOCYTES # (AUTO) 1.4 K/uL (2.5-16.5); MEAN CORPUSCULAR HEMOGLOBIN 29 pg (27-31); MEAN CORPUSCULAR HGB CONC 33 g/dL (33-37); MEAN CORPUSCULAR VOLUME 88.2 fL (80-94); MONOCYTES # (AUTO) 1.2 K/uL (0.8-1.0); MONOCYTES % (AUTO) 11.6 % (1.7-9.3); NEUTROPHILS # (AUTO) 7.9 K/uL (1.8-7.7); NEUTROPHILS % (AUTO) 73.2 % (42.2-75.2); PLATELET COUNT (AUTO) 217 K/uL (140-450); RED BLOOD CELL COUNT(AUTO) 3.86 MIL/uL (4.20-5.40); RED CELL DISTRIBUTION WIDTH 14.1 % (11.6-13.7); WHITE BLOOD COUNT (AUTO) 10.8 K/uL (4.8-10.8)
--- NOTE | 2017-10-10 07:25 | NUR ---
ENDORSED PT TO DAY SHIFT RN FOR CONTINUITY OF CARE. PT IN STABLE CONDITION.
--- NOTE | 2017-10-10 07:26 | NUR ---
RECEIVED REPORT FROM FISH BAIT PICKER RN. PATIENT IS AAOX4, HAS NO SIGNS AND SYMPTOMS OF ACUTE DISTRESS NOTED AT THIS TIME. HAS AN IV TO THE RIGHT AC 18G, INFUSING D5 1/2 NS AT 50 ML/HR. SITE IS CLEAN, DRY, PATENT AND INTACT. HAS AV SHUNT TO THE LEFT UPPER ARM. DISCUSSED PLAN OF CARE WITH PATIENT AND SHE VERBALIZED UNDERSTANDING. SEIZURE AND FALL PRECAUTIONS ARE IN PLACE. BED IN LOWEST POSITION, SIDE RAILS UP X2, CALL LIGHT WITHIN REACH. WILL CONTINUE TO MONITOR.
[2017-10-10 08:00] VITALS: BP 145/63
[2017-10-10 08:00] LABS: ANION GAP 11.9 (8-16); CREATININE 3.4 mg/dL (0.6-1.3); POTASSIUM 3.9 mmol/L (3.5-5.1)
[2017-10-10] MEDS ORDERED: KCL 20 MEQ/WATER INJ PREMIX 100 ML IV SCH (08:00)
[2017-10-10] MEDS: DOCUSATE SODIUM 100 MG GELCAP PO SCH ×2 (09:00→21:01)
--- NOTE | 2017-10-10 09:01 | NUR ---
FAXED INITIAL REVIEW TO [facility] [phone] PHONE [phone] DORA FAXED INITIAL REVIEW TO [facility] [phone] PHONE MD [phone]
[2017-10-10] MEDS ORDERED: VANCOMYCIN PER PHARMACY MC PRN (09:15)
[2017-10-10] MEDS: hydrALAZINE 25 MG TAB PO SCH ×2 (09:17→21:00)
[2017-10-10] MEDS: MINOXIDIL 2.5 MG TAB PO SCH ×2 (09:17→21:02)
--- NOTE | 2017-10-10 10:43 | NUR ---
PATIENT HAS BEEN SCREENED AND CATEGORIZED HIGH NUTRITION RISK. PATIENT WILL BE SEEN WITHIN 1-2 DAYS OF ADMISSION. 10/10/17 10/11/[address]
[2017-10-10 12:00] VITALS: BP 106/51
--- NOTE | 2017-10-10 15:55 | NUR ---
10/10/17 RD INITIAL ASSESSMENT COMPLETED PLEASE REFER TO NUTRITION ASSESSMENT UNDER CARE ACTIVITY FOR ESTIMATED NUTRITIONAL NEEDS. 1. RECOMMEND CCHO 60GM AND RENAL DIET TOLERATED 2. RECOMMEND 1 PKT SILVER QD FOR WOUND HEALING 3. 1-2 GM VITAMIN C FOR WOUND HEALING 4. FOLLOW-UP ESRD AND DM NUTRITION EDUCATION 5. RD TO FOLLOW-UP 2-3 DAYS, HIGH RISK MARIE [address] RD
[2017-10-10 16:00] VITALS: BP 99/46
[2017-10-10] MEDS: INSULIN LISPRO SLIDING SCALE 100 UNITS/ML VIAL SUBQ PRN (17:30)
--- NOTE | 2017-10-10 19:28 | NUR ---
ENDORSED PATIENT TO SANITATION WORKER CLEANING EQUIPMENT RN FOR CONTINUITY OF CARE. PATIENT IN STABLE CONDITION.
--- NOTE | 2017-10-10 19:30 | NUR ---
RECEIVED REPORT FROM DAY SHIFT RN FOR CONTINUITY OF CARE. PT IS A/OX1, ON ROOM AIR. PT IS ABLE TO MAKE NEEDS KNOWN, ABLE TO FOLLOW COMMANDS. PT IS LETHARGIC. RESPIRATIONS EVEN AND UNLABORED AT THE MOMENT. PT HAS GANGRENE TO LEFT SECOND TOE, OPEN WOUND TO LEFT LOWER EXTREMITY, OPEN WOUND ON FACE, AND MULTIPLE SCABS THROUGHOUT BODY AND PT REPORTS BEING ITCHY. PT HAS 18G IV TO RIGHT FOREARM, ASYMPTOMATIC, INTACT AND PATENT. BP SLIGHTLY ELEVATED, OTHERWISE VITAL SIGNS WITHIN NORMAL LIMITS. PT STABLE, NO SIGNS OF DISTRESS NOTED AT THIS TIME. BED IN LOWEST POSITION, BED ALARM ON. CALL LIGHT WITHIN REACH, WILL CONTINUE TO MONITOR.
[2017-10-10] MEDS: HYDROcodone/APAP 7.5/325 MG 1 TAB PO PRN ×2 (19:52→23:39)
[2017-10-10 20:00] VITALS: BP 145/68
[2017-10-10] MEDS: NACL 0.9% 1,000 ML IV SCH (20:59)
[2017-10-10] MEDS: NITROGLYCERIN 2% 1 GM PKT TP SCH (21:02)
--- NOTE | 2017-10-10 21:05 | NUR ---
ADMINISTERED SCHEDULED MEDICATIONS, PT TOLERATED WELL. NO SWALLOWING PROBLEMS NOTED.
--- NOTE | 2017-10-10 23:40 | NUR ---
SPOKE TO DR BRIEN PARSONS NOT RELIEVING PT PAIN COMPLETELY. SAID TO GIVE PT ANOTHER NORCO NOW. ADMINISTERED NORCO, PT TOLERATED WELL.
[2017-10-11] VITALS: BP 91/48
--- NOTE | 2017-10-11 | NUR ---
VITAL SIGNS WITHIN NORMAL LIMITS. PT STABLE, NO SIGNS OF DISTRESS NOTED AT THIS TIME. BED IN LOWEST POSITION, BED ALARM ON. CALL LIGHT WITHIN REACH, WILL CONTINUE TO MONITOR.
--- NOTE | 2017-10-11 02:10 | NUR ---
PT STABLE, NO SIGNS OF DISTRESS NOTED AT THIS TIME. BED IN LOWEST POSITION, BED ALARM ON. CALL LIGHT WITHIN REACH, WILL CONTINUE TO MONITOR.
[2017-10-11 04:00] VITALS: BP 104/80
[2017-10-11] MEDS: NITROGLYCERIN 2% 1 GM PKT TP SCH ×3 (05:08→20:57)
[2017-10-11] MEDS: NACL 0.9% 1,000 ML IV SCH (05:08)
--- NOTE | 2017-10-11 05:58 | NUR ---
ASKED DR RODRIGEZ IF PT WILL BE GETTING HD TODAY BECAUSE PT GETS DIALYSIS MWF BUT I DON'T SEE ANY ORDER FOR IT. DR SAID SHE MIGHT BE CONTINUING TOMORROW.
[2017-10-11] MEDS: BLOOD GLUCOSE MONITORING 1 DEV DEV FS SCH ×4 (06:39→21:19)
--- NOTE | 2017-10-11 07:28 | NUR ---
ENDORSED PT TO DAY SHIFT RN FOR CONTINUITY OF CARE. PT IS IN STABLE CONDITION.
--- NOTE | 2017-10-11 07:29 | NUR ---
RECEIVED REPORT FROM RESEARCH RECRUITER RN. PATIENT IS AAOX4, HAS NO SIGNS AND SYMPTOMS OF ACUTE DISTRESS NOTED AT THIS TIME. HAS AN IV TO THE RIGHT HAND 22G, INFUSING NS AT 50 ML/HR. SITE IS CLEAN, DRY, PATENT AND INTACT. HAS AV SHUNT TO THE LEFT UPPER ARM. DISCUSSED PLAN OF CARE WITH PATIENT AND SHE VERBALIZED UNDERSTANDING. SEIZURE AND FALL PRECAUTIONS ARE IN PLACE. BED IN LOWEST POSITION, SIDE RAILS UP X2, CALL LIGHT WITHIN REACH. WILL CONTINUE TO MONITOR.
[2017-10-11 08:00] VITALS: BP 90/48
[2017-10-11 08:13] LABS: ANION GAP 12.9 (8-16); CARBON DIOXIDE 28.9 mmol/L (21-32); POTASSIUM 3.8 mmol/L (3.5-5.1)
[2017-10-11 08:27] LABS: CREATININE 4.6 mg/dL (0.6-1.3)
[2017-10-11] MEDS: MINOXIDIL 2.5 MG TAB PO SCH (09:00)
[2017-10-11] MEDS: hydrALAZINE 25 MG TAB PO SCH ×2 (09:00→20:56)
--- NOTE | 2017-10-11 09:40 | NUR ---
SPOKE WITH DR SAMSON WHO'S SUPPLIER ENGINEER FOR DR CASTANEDA, AND HE SAID TO HAVE DIALYSIS NURSE CALL HIM WHEN SHE GETS HERE FOR THE HEMODIALYSIS ORDER.
[2017-10-11] MEDS ORDERED: VANCOMYCIN 500 MG in DEXTROSE 5% 100 ML IV SCH (10:00)
[2017-10-11] MEDS ORDERED: VANCOMYCIN 500 MG VIAL ONE (10:01)
[2017-10-11] MEDS: ASCORBIC ACID 500 MG TAB PO SCH (10:03)
[2017-10-11] MEDS: DOCUSATE SODIUM 100 MG GELCAP PO SCH ×2 (10:03→21:07)
[2017-10-11] MEDS ORDERED: HEPARIN PER PHARMACY MC PRN (10:35)
[2017-10-11 12:00] VITALS: BP 103/55
[2017-10-11] MEDS: INSULIN LISPRO SLIDING SCALE 100 UNITS/ML VIAL SUBQ PRN (12:14)
--- NOTE | 2017-10-11 12:20 | NUR ---
DIDN'T GIVE PATIENT THE NITRO BID DUE TO DECREASED BLOOD PRESSURE, PATIENT IS ALSO RECEIVING HEMODIALYSIS.
[2017-10-11 13:14] LABS: BASOPHILS % (AUTO) 0.3 % (0.0-2.0); EOSINOPHILS # (AUTO) 0.3 K/uL (0-0.4); EOSINOPHILS % (AUTO) 2.9 % (0.0-4.0); HEMATOCRIT 30.7 % (36-48); HEMOGLOBIN 9.8 g/dL (12.0-16.0); LYMPHOCYTES # (AUTO) 1.2 K/uL (2.5-16.5); LYMPHOCYTES % (AUTO) 13.3 % (20.5-51.1); MEAN CORPUSCULAR HEMOGLOBIN 29 pg (27-31); MEAN CORPUSCULAR HGB CONC 32 g/dL (33-37); MEAN CORPUSCULAR VOLUME 89.2 fL (80-94); MONOCYTES # (AUTO) 1.1 K/uL (0.8-1.0); MONOCYTES % (AUTO) 12.1 % (1.7-9.3); NEUTROPHILS # (AUTO) 6.4 K/uL (1.8-7.7); NEUTROPHILS % (AUTO) 71.4 % (42.2-75.2); PLATELET COUNT (AUTO) 212 K/uL (140-450); RED BLOOD CELL COUNT(AUTO) 3.44 MIL/uL (4.20-5.40); RED CELL DISTRIBUTION WIDTH 14.2 % (11.6-13.7); WHITE BLOOD COUNT (AUTO) 8.9 K/uL (4.8-10.8)
--- NOTE | 2017-10-11 13:50 | NUR ---
CALLED PICC LINE NURSE REGARDING O INSERT PICC LINE FOR PATIENT WILL LOOK FOR A NURSE AND CALL BACK
--- NOTE | 2017-10-11 14:20 | NUR ---
SPOKE WITH PICC LINE NURSE AND GAVE HER HISTORY OF THE PATIENT. INFORMED HER THAT THE PATIENT IS A DIALYSIS PATIENT. SHE STATED THAT SHE WOULD NEED CONSENT FROM THE CHARGE WEIGHER OR ATTENDING DOCTOR STATING IT IS OKAY TO PROCEED WITH PICC LINE PLACEMENT. NEEDS INFORMED CONSENT ETC.
--- NOTE | 2017-10-11 15:20 | NUR ---
DR SAMSON IS HERE AND INFORMED HIM OF PICC LINE PLACEMENT AND THAT THE PICC LINE NURSE NEEDS HIM TO OKAY FOR PICC PLACEMENT. STATED HE WANTS MIDLINE INSTEAD. WILL INFORM PICC LINE NURSE.
--- NOTE | 2017-10-11 15:40 | NUR ---
SPOKE WITH PICC LINE NURSE TO TELL HER THAT THE CANARY RAISER IS HERE AND HE STATED THAT HE WANTS A MIDLINE INSTEAD. SHE ASKED WHAT ANTIBIOTIC WILL PATIENT BE RECEIVING. INFORMED HER THAT IT IS VANCOMYCIN. SHE TOLD ME THAT VANCO ISN'T VERY COMPATIBLE WITH MIDLINE BECAUSE IT CAUSES MORE IRRITATION TO THE SKIN AND THE MIDLINE WON'T LAST MORE THAN A WEEK. WILL INFORM DR SAMSON.
--- NOTE | 2017-10-11 15:40 | NUR ---
clinical review faxed to [facility] at [phone] and spoke to OR At [phone].
--- NOTE | 2017-10-11 15:45 | NUR ---
SPOKE WITH DR SAMSON AND INFORMED HIM WHAT THE PICC LINE NURSE SAID AND HE SAID THAT THE PATIENT DOESN'T NEED PICC OR MIDLINE FOR VANCO. THAT THE PATIENT CAN RECEIVE IT AT THE DIALYSIS CENTER. WILL INFORM DR DUBOIS
[2017-10-11 16:00] VITALS: BP 124/73
--- NOTE | 2017-10-11 16:03 | NUR ---
per seismograph observer, patient can have her antibiotic vancomycin with her dialysis days, MWF. no need for midline.
--- NOTE | 2017-10-11 16:08 | NUR ---
Per charge nurse, Dr Celaya the chlorine plant operator states patient can have her IVABT vancomycin with her dialysis days.
--- NOTE | 2017-10-11 16:26 | NUR ---
per clinical coordinator Briana at [facility] , they will administer vancomycin 500 mg iv at their facility, no need to fax any orders to them.
[2017-10-11] MEDS: HYDROcodone/APAP 7.5/325 MG 1 TAB PO PRN (16:37)
[2017-10-11] MEDS: hePARIN / DEXT 5% PREMIX 250 ML IV SCH (17:02)
[2017-10-11] MEDS ORDERED: MORPHINE SULFATE 2 MG/ML SYR IVP PRN ×2 (17:30→18:30)
--- NOTE | 2017-10-11 19:28 | NUR ---
ENDORSED PATIENT TO PRIOR AUTHORIZATION NURSE RN FOR CONTINUITY CARE. PATIENT IN STABLE CONDITION.
--- NOTE | 2017-10-11 19:45 | NUR ---
RECEIVED SBAR FROM DAY SHIFT RN. PATIENT IS GSC 9. BREATH SOUNDS ARE CLEAR AND ACTIVE BOWEL SOUNDS NOTED. THERE IS A #22 IN THE RIGHT FOREARM WITH HEPARIN DRIP INFUSING AT 5ML/HR. SITE IS CDI. SBP IS IN THE 80S. SPOKE TO DR. AGOSTO REGARDING FINDINGS. NEW ORDERS RECEIVED TO BOLUS NS 250ML. INSPECTOR GLASS OR MIRROR AWARE. WILL FOLLOW UP WITH NEW MD ORDERS. OTHERWISE, PATIENT IS AFEBRILE. NO SIGNS OF RESPIRATORY DISTRESS NOTED. HOB AT 30 DEGREES WITH BED IN LOWEST POSITION. BED ALARM ON. CONTINUE TO MONITOR PATIENT.
[2017-10-11 20:00] VITALS: BP 85/40
[2017-10-11] MEDS ORDERED: NACL 0.9% 250 ML IV ONE (20:20)
[2017-10-11] MEDS ORDERED: MIDODRINE 5 MG TAB PO SCH (21:00)
--- NOTE | 2017-10-11 21:20 | NUR ---
TOLERATED DUE MEDICATIONS. POCT IS 134. NO INSULIN COVERAGE NEEDED AT THIS TIME. HOB AT 30 DEGREES WITH BED IN LOWEST POSITION. CALL LIGHT WITHIN REACH. BED ALARM ON. CONTINUE TO MONITOR PATIENT.
--- NOTE | 2017-10-11 22:26 | NUR ---
BP IS 97/50 WITH MAP OF 71. REPORTED FINDINGS TO DR. AGOSTO. ACKNOWLEDGE AND SAID GOAL IS TO MAINTAIN MAP OF 65. WILL FOLLOW UP WITH ORDERS. CONTINUE TO MONITOR PATIENT.
[2017-10-12] VITALS: BP 97/52
--- NOTE | 2017-10-12 00:11 | NUR ---
PATIENT SLEEPING IN BED. AROUSED BY LIGHT STIMULATION. VSS AND PATIENT IS AFEBRILE. FLACC 0. HOB AT 30 DEGREES WITH BED IN LOWEST POSITION. BED ALARM ON. CALL LIGHT WITHIN REACH. CONTINUE TO MONITOR PATIENT.
[2017-10-12] MEDS: hePARIN / DEXT 5% PREMIX 250 ML IV SCH ×3 (00:41→18:17)
--- NOTE | 2017-10-12 00:41 | NUR ---
PTT IS 33.9. ADMINISTER BOLUS OF 2600 UNITS AND INCREASED RATE TO 6.7 ML/HR. MUSIC MIXER AT BEDSIDE WITNESS AND CO-SIGNER. NO SIGNS OF DISTRESS. HOB AT 30 DEGREES WITH BED IN LOWEST POSITION. CALL LIGHT WITHIN REACH. BED ALARM ON. CONTINUE TO MONITOR PATIENT.
--- NOTE | 2017-10-12 03:30 | NUR ---
PATIENT RESTING IN BED. NO SIGNS OF RESPIRATORY DISTRESS. VSS AND PATIENT IS AFEBRILE. HOB AT 30 DEGREES WITH BED IN LOWEST POSITION. BED ALARM ON. CALL LIGHT WITHIN REACH. CONTINUE TO MONITOR PATIENT.
[2017-10-12 04:00] VITALS: BP 95/68
[2017-10-12] MEDS: NITROGLYCERIN 2% 1 GM PKT TP SCH ×4 (05:00→21:00)
[2017-10-12] MEDS: BLOOD GLUCOSE MONITORING 1 DEV DEV FS SCH ×5 (06:17→21:27)
--- NOTE | 2017-10-12 06:25 | NUR ---
POCT IS 117. NO INSULIN COVERAGE NEEDED AT THIS TIME. CONTINUE TO MONITOR PATIENT.
[2017-10-12 07:03] LABS: HEMOGLOBIN 9.4 g/dL (12.0-16.0); MEAN CORPUSCULAR HEMOGLOBIN 29 pg (27-31); MEAN CORPUSCULAR HGB CONC 33 g/dL (33-37); MEAN CORPUSCULAR VOLUME 88.6 fL (80-94); PLATELET COUNT (AUTO) 205 K/uL (140-450); RED BLOOD CELL COUNT(AUTO) 3.27 MIL/uL (4.20-5.40); WHITE BLOOD COUNT (AUTO) 9.9 K/uL (4.8-10.8)
[2017-10-12 07:14] LABS: ANION GAP 7.8 (8-16); CARBON DIOXIDE 32.2 mmol/L (21-32); CREATININE 3.4 mg/dL (0.6-1.3)
--- NOTE | 2017-10-12 07:14 | NUR ---
SBAR GIVEN TO DEEDEE PUTNAM FOR CONTINUITY OF CARE.
--- NOTE | 2017-10-12 07:15 | NUR ---
RECEIVED REPORT FROM SOCK LINING EXAMINER RN. LEFT TOE GANGRENE NOTED. ECCHYMOSIS NOTED ON LEFT ARM. HP HAS LEFT UA AV FISTULAE FOR DIALYSIS ACCESS. IV SITE PATENT AND INFUSING HEPARIN AT 670 UNITS/HR. LUNGS CTA. NO COMPLAINTS OF PAIN OR DISTRESS BUT VOICES DESIRE TO GO HOME. MD WILL BE IN ROOM LATER TO DISCUSS PLAN OF CARE WITH PT. ALL SAFETY PRECAUTIONS IN PLACE, WILL CONTINUE TO MONITOR.
[2017-10-12 08:00] VITALS: BP 104/56
[2017-10-12] MEDS: METOPROLOL 25 MG TAB PO SCH (09:00)
[2017-10-12] MEDS ORDERED: METOPROLOL SUCCINATE 50 MG TABER PO SCH (09:00)
[2017-10-12] MEDS ORDERED: MIDODRINE 5 MG TAB PO SCH (09:00)
[2017-10-12] MEDS: hydrALAZINE 25 MG TAB PO SCH (09:00)
[2017-10-12] MEDS: ASCORBIC ACID 500 MG TAB PO SCH (09:14)
[2017-10-12] MEDS: VIT-B COMP/VIT-C/FOLIC ACID 1 TAB PO SCH (09:14)
[2017-10-12] MEDS: DOCUSATE SODIUM 100 MG GELCAP PO SCH ×2 (09:18→21:13)
--- NOTE | 2017-10-12 10:06 | NUR ---
RATE OF HEPARIN INFUSION ADJUSTED TO 7.6 ML/HR BASED ON RECENT PPT VALUE. HEPARIN BOLUS GIVEN. NEW APPT VALUE ORDERED FOR 1600.
[2017-10-12 10:14] LABS: EOSINOPHILS % (MANUAL) 3 % (0-4); LYMPHOCYTES % (MANUAL) 13 % (20-46); MONOCYTES % (MANUAL) 11 % (5-12)
[2017-10-12 12:00] VITALS: BP 97/38
[2017-10-12] MEDS: INSULIN LISPRO SLIDING SCALE 100 UNITS/ML VIAL SUBQ PRN ×2 (12:26→21:29)
--- NOTE | 2017-10-12 12:26 | NUR ---
2 UNITS HUMALOG GIVEN FOR BLOOD SUGAR OF 170. PATIENT IS AAO X2 WITH PERIODS OF CONFUSION.
--- NOTE | 2017-10-12 13:17 | NUR ---
FAXED CONCURRENT REVIEW TO [facility] [phone] PHONE [phone] DORA FAXED CONCURRENT REVIEW TO [facility] [phone] PHONE [phone]
--- NOTE | 2017-10-12 14:40 | NUR ---
DAUGHTER AT BEDSIDE. DAUGHTER EXPLAINED THAT PT IS ANXIOUS WHEN IN THE HOSPITAL AND THAT PT IS AFRAID OF NEEDLES. PT DENIES PAIN AND DISCOMFORT AT THIS TIME. WILL CONTINUE TO MONITOR.
--- NOTE | 2017-10-12 15:34 | NUR ---
WOUND CARE NOTE: LEFT 2ND TOE GANGRENE EXAMED BY DR. ACUÑA. ALSO DISCUSSED WITH DR. BEAL PT HAS +PVA RECOMMEND TO HAVE VASCULAR CONSULT. DR. BEAL WILL ARRANGE TO FOLLOW UP OUT PATIENT. WILL CONTINUE TO FOLLOW DR. ACUÑA INSTRUCTIONS TO PAINT AREA WITH BETADINE SOLUTION AND DEDENTER.
[2017-10-12 16:00] VITALS: BP 95/53
--- NOTE | 2017-10-12 16:38 | NUR ---
PT IS AWAKE AND REFUSING BLOOD SUGAR CHECKS. PT IS CLENCHING ONE HAND TOGETHER IN A FIST AND HOLDING OTHER HAND BEHIND HEAD. WHEN AGAIN ASKED IN [place] IF BLOOD SUGAR CHECK CAN BE PERFORMED, PT REFUSED.
--- NOTE | 2017-10-12 18:17 | NUR ---
BOLUS OF HEPARIN AND HEPARIN INFUSION RATE ADJUSTED PER HEPARIN PROTOCOL. CURRENT HEPARIN INFUSION RATE IS NOW 930 UNITS/HR.
--- NOTE | 2017-10-12 19:19 | NUR ---
ENDORSED PLAN OF CARE TO CONSUMER AFFAIRS SPECIALIST RN. PT IN STABLE CONDITION.
[2017-10-12 20:00] VITALS: BP 103/77
--- NOTE | 2017-10-12 20:00 | NUR ---
RECEIVED PT REPORT FROM NURSE D/T PT SWITCH. PT IN STABLE CONDITION. PT EYES ARE CLOSED BUT RESPONDS WHEN SPOKEN TO. PT A/O X3. PT HAS NC 2L. PT HAS NECROSIS TO TOE ON R FOOT. IV ACCESS IN R HAND 22G WITH HEPARIN INFUSING. PT HAS LEONIE AV FISTULA. NO C/O PAIN AT THIS TIME. BED IS MELISSA, LOW POSITION WITH SIDE RAILS UP X2. BOARD UPDATED. WILL CONTINUE TO MONITOR PT.
--- NOTE | 2017-10-12 21:18 | NUR ---
D/T DECREASED BP NITRO NOT GIVEN. WILL CONTINUE TO MONITOR PT.
--- NOTE | 2017-10-12 21:29 | NUR ---
PT AGREED TO HAVE BS CHECKED, 227. INSULIN COVERAGE PROVIDED PER MD ORDERS.
--- NOTE | 2017-10-12 23:36 | NUR ---
WOUND CULTURE COLLECTED. WOUND CARE PERFORMED. PT TOLERATED WELL. WILL CONTINUE TO MONITOR.
[2017-10-13] VITALS: BP 107/45
--- NOTE | 2017-10-13 00:05 | NUR ---
LAB HERE TO DRAW LABS FOR PTT VALUE.
--- NOTE | 2017-10-13 02:01 | NUR ---
LAB CALLED TO REPORT PTT LAB VALUE, 55.9. WILL FOLLOW HEPARIN ADMINISTRATION PROTOCOL.
[2017-10-13 04:00] VITALS: BP 150/73
[2017-10-13] MEDS: hePARIN / DEXT 5% PREMIX 250 ML IV SCH (04:07)
--- NOTE | 2017-10-13 04:07 | NUR ---
NEW HEPARIN BAG STARTED. PT IS STABLE. NO SIGNS OF DISTRESS. WILL CONTINUE TO MONITOR.
[2017-10-13] MEDS: NITROGLYCERIN 2% 1 GM PKT TP SCH ×3 (04:29→20:18)
[2017-10-13] MEDS: BLOOD GLUCOSE MONITORING 1 DEV DEV FS SCH ×4 (05:26→20:17)
--- NOTE | 2017-10-13 06:13 | NUR ---
LAB HERE TO DRAW ORDERED PTT LABS.
[2017-10-13 07:15] LABS: BASOPHILS # (AUTO) 0.1 K/uL (0.00-0.22); BASOPHILS % (AUTO) 0.7 % (0.0-2.0); EOSINOPHILS # (AUTO) 0.3 K/uL (0-0.4); EOSINOPHILS % (AUTO) 2.7 % (0.0-4.0); HEMATOCRIT 29.1 % (36-48); HEMOGLOBIN 9.4 g/dL (12.0-16.0); LYMPHOCYTES # (AUTO) 1.7 K/uL (2.5-16.5); LYMPHOCYTES % (AUTO) 14.5 % (20.5-51.1); MEAN CORPUSCULAR HEMOGLOBIN 29 pg (27-31); MEAN CORPUSCULAR HGB CONC 32 g/dL (33-37); MEAN CORPUSCULAR VOLUME 88.6 fL (80-94); MONOCYTES # (AUTO) 1.7 K/uL (0.8-1.0); MONOCYTES % (AUTO) 13.9 % (1.7-9.3); NEUTROPHILS # (AUTO) 8.2 K/uL (1.8-7.7); NEUTROPHILS % (AUTO) 68.2 % (42.2-75.2); PLATELET COUNT (AUTO) 212 K/uL (140-450); RED BLOOD CELL COUNT(AUTO) 3.29 MIL/uL (4.20-5.40); RED CELL DISTRIBUTION WIDTH 14.3 % (11.6-13.7)
--- NOTE | 2017-10-13 07:15 | NUR ---
ENDORSED PT TO DAY SHIFT NURSE. PT IN STABLE CONDITION.
--- NOTE | 2017-10-13 07:16 | NUR ---
RECEIVED REPORT FROM THE VP BUSINESS DEVELOPMENT NURSE AT BEDSIDE FOR CONTINUITY OF CARE. PT IS SLEEPING. PER VP BUSINESS DEVELOPMENT NURSE, PT IS LEBANESE SPEAKING. PT IS WEARING A NC, O2 AT 2L . BED IS BEDBOUND. SKIN-L 2ND TOE GANGRENE. IT'S BLACK, NECROSED. LBM WAS THIS MORNING. PT HAS L UA AV FISTULA. HD SCHEDULED TODAY. IV ON R HAND 22G, HEPARIN DRIP AT 930. TODAY PT IS 52.8, 2ND WITHIN PROTOCOL. NEXT PT ORDERED FOR TOMORROW PER VP BUSINESS DEVELOPMENT HAMILOTN. R FA 22GSL. NO SIGNS OF DISTRESS. WILL CONTINUE TO MONITOR PT.
[2017-10-13 07:32] LABS: CARBON DIOXIDE 28.2 mmol/L (21-32); POTASSIUM 4.2 mmol/L (3.5-5.1)
[2017-10-13 07:36] LABS: CREATININE 4.7 mg/dL (0.6-1.3)
[2017-10-13 07:37] LABS: MAGNESIUM 1.9 mg/dL (1.8-2.4); PHOSPHORUS 4.5 mg/dL (2.5-4.9)
[2017-10-13 08:00] VITALS: BP 131/70
[2017-10-13] MEDS: METOPROLOL 25 MG TAB PO SCH (09:00)
[2017-10-13] MEDS: VIT-B COMP/VIT-C/FOLIC ACID 1 TAB PO SCH (09:40)
[2017-10-13] MEDS: DOCUSATE SODIUM 100 MG GELCAP PO SCH ×2 (09:41→20:24)
[2017-10-13] MEDS: ASCORBIC ACID 500 MG TAB PO SCH (09:41)
--- NOTE | 2017-10-13 09:43 | NUR ---
ADMINISTERED MORNING MEDS. HELD METOPROLOL D/T PT WILL HAVE DIALYSIS. PT TOLERATED WELL. WILL CONTINUE TO MONITOR PT.
[2017-10-13 12:00] VITALS: BP 123/60
[2017-10-13] MEDS: INSULIN LISPRO SLIDING SCALE 100 UNITS/ML VIAL SUBQ PRN ×3 (12:30→20:26)
--- NOTE | 2017-10-13 12:49 | NUR ---
FAXED CONCURRENT REVIEW TO [facility] [phone] [place] [phone] FA[facility] TO [facility] [phone] PHONE [phone] I CALLED [facility] AND SPOKE WITH VIKASH. SHE GAVE ME THE NURSE, ADAMA, TO SPEAK WITH ABOUT THE VANCOMYCIN. ADAMA SAID EVERYTHING WAS SET UP FOR THE VANCOMYCIN TO BE GIVEN ON THE DAY OF DIALYSIS AND THEY HAVE THE MEDICATION THERE. PHONE [phone].
--- NOTE | 2017-10-13 13:27 | NUR ---
CALLED AND SPOKE TO DAUGHTER, MOLINA IN THE CONTACT LIST, REGARDING HER BASE LINE. PT DOES WALK AROUND THE HOME WITH ASSISTANCE. PT IS LEGALLY BLIND. SHE CAN'T SEE VERY WELL. THEY DO FEED HER AT HOME OR WHEN DESCRIBED TO HER ABOUT WHAT IS IN FRONT OF HER, SHE CAN EAT WITH HER HANDS. SHE USED TO WALK WITH A WALKER OUTSIDE OF HER HOME BUT IT GOT STOLEN. NOW SHE IS PUSHED IN A WHEELCHAIR TO AND FROM HER DIALYSIS APPT.
[2017-10-13] MEDS ORDERED: VANCOMYCIN PER PHARMACY MC PRN (13:45)
--- NOTE | 2017-10-13 14:20 | NUR ---
DIALYSIS NURSE HERE. GAVE COPY OF ORDERS, LABS, AND 1 L NS. SHE WILL SET UP AND START.
[2017-10-13] MEDS ORDERED: VANCOMYCIN 500 MG in DEXTROSE 5% 100 ML IV SCH ×4 (15:00)
--- NOTE | 2017-10-13 15:12 | NUR ---
DIALYSIS NURSE REQUESTED AN ORDER OF ALBUMIN 25% IN 100ML BOTTLE FOR PT D/T LOW BP 87/50. ORDER WAS PUT IN FOR DR. CASTANEDA. VERIFIED BY PHARMACY AND GIVEN TO RN TO ADMINISTER.
[2017-10-13] MEDS ORDERED: ALBUMIN HUMAN 25% 100 ML IV SCH (15:15)
[2017-10-13 16:00] VITALS: BP 90/39
--- NOTE | 2017-10-13 16:44 | NUR ---
10/13/17 RD FOLLOW UP COMPLETED PLEASE REFER TO NUTRITION PROGRESS NOTE UNDER CARE ACTIVITY FOR ESTIMATED NUTRITION NEEDS. RD RECOMMENDATIONS: 1. CONTINUE CCHO 60GM, RENAL WITH 1 PKT SILVER QD TOLERATED 2. RD WILL F/U 3-5 DAYS; MODERATE RISK. MARIE POLANCO RD
--- NOTE | 2017-10-13 18:45 | NUR ---
DIALYSIS DONE. TOTAL OUTPUT 1700ML. PT TOLERATED WELL. BP BACK TO UP. WILL ENDORSE TO BISCUIT MACHINE OPERATOR THE DRESSING TO BE REMOVED AT 1 TO 2 AM AT [employer] BLASTING REQUEST.
--- NOTE | 2017-10-13 19:23 | NUR ---
ENDORSED PT TO THE [employer] LAW CLERK NURSE AT BEDSIDE FOR CONTINUITY OF CARE . PT IS IN STABLE CONDITION.
--- NOTE | 2017-10-13 19:23 | NUR ---
RECEIVED PT REPORT AT PT BEDSIDE FROM DAY SHIFT NURSE. PT IN STABLE CONDITION. PT HAS LEONIE AV FISTULA. IV ACCESS IN R HAND 22G AND R FA 22G. IVS ARE PATENT AND INTACT WITH ORDERED HEPARIN INFUSING INTO R HAND IV. PT IS A/O X3. PT IS ON NC 2L. 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 NO C/O PAIN AT THIS TIME. BED IS LOCKED, LOW POSITION WITH SIDE RAILS UP X2. CALL LIGHT IS WITHIN REACH. BOARD UPDATED. WILL CONTINUE TO MONITOR PT.
[2017-10-13 20:00] VITALS: BP 105/46
--- NOTE | 2017-10-13 20:26 | NUR ---
BS CHECKED, 184. INSULIN COVERAGE GIVEN PER MD ORDERS.
--- NOTE | 2017-10-13 22:34 | NUR ---
PT ASLEEP IN BED. NO S/SX OF DISTRESS. WILL CONTINUE TO MONITOR PT.
[2017-10-14] VITALS: BP 149/75
--- NOTE | 2017-10-14 00:19 | NUR ---
PT VS WITHIN NORMAL LIMITS. ALL NEEDS ARE MET AT THIS TIME. WILL CONTINUE TO MONITOR PT.
--- NOTE | 2017-10-14 02:10 | NUR ---
PT ASSIGNMENT CHANGE. REPORT GIVEN TO JOSHUA CATHERINE FOR CONTINUITY OF CARE.
--- NOTE | 2017-10-14 02:10 | NUR ---
RECEIVED REPORT FROM FLORIN PUTNAM PERFORMANCE ARCHITECT DUE TO CHANGE IN THE ASSIGNMENT. PT IN LOW BED WITH ALL FALLS PRECAUTIONS IN PLACE. HEPARIN GTT CONTINUES AT 930 UNITS AND N/S RUNNING AT 10MLS/HR. AWAITING LABS FOR ANY GTT ADJUSTMENT.
[2017-10-14 04:00] VITALS: BP 119/64
--- NOTE | 2017-10-14 04:00 | NUR ---
PT IN BED , HEPARIN GTTS AT 930 UNITS AN HOUR AND N/S AT 10MLS/HR. IV SITES ON R /FA INTACT WITH NO S/S OF INFILTRATION NOTED. PT SLEEPING SOUNDLY WITH NO C/O VOICED. V/S FOLLOWS: T 98.4 P 74 R 20 B/P 119/64 02 100 ON N/C AT 2L .
[2017-10-14] MEDS: NITROGLYCERIN 2% 1 GM PKT TP SCH (05:33)
[2017-10-14] MEDS: BLOOD GLUCOSE MONITORING 1 DEV DEV FS SCH ×2 (05:55→11:20)
--- NOTE | 2017-10-14 06:00 | NUR ---
PT IN BED SLEEPING NO S/S OF BRUISING OR BLEEDING NOTED. BOTH IV SITE ON R F/A INTACT AND ASYMPTOMATIC BED LOW AND ALL FALLS PRECAAUTIONS IN PLACE PRESIDENT PRACTICING UROLOGIST TURNING AND CHANGING RESIDENT.
[2017-10-14] MEDS ORDERED: ASPI81CT95 PO (06:52)
[2017-10-14] MEDS ORDERED: Vancomycin Per Pharmacy MC (06:54)
[2017-10-14 07:10] LABS: BASOPHILS # (AUTO) 0.1 K/uL (0.00-0.22); BASOPHILS % (AUTO) 0.5 % (0.0-2.0); EOSINOPHILS # (AUTO) 0.3 K/uL (0-0.4); EOSINOPHILS % (AUTO) 2.4 % (0.0-4.0); HEMATOCRIT 27.1 % (36-48); HEMOGLOBIN 8.9 g/dL (12.0-16.0); LYMPHOCYTES # (AUTO) 1.3 K/uL (2.5-16.5); LYMPHOCYTES % (AUTO) 11.3 % (20.5-51.1); MEAN CORPUSCULAR HEMOGLOBIN 29 pg (27-31); MEAN CORPUSCULAR HGB CONC 33 g/dL (33-37); MEAN CORPUSCULAR VOLUME 88.2 fL (80-94); MONOCYTES # (AUTO) 1.3 K/uL (0.8-1.0); MONOCYTES % (AUTO) 11.8 % (1.7-9.3); NEUTROPHILS # (AUTO) 8.4 K/uL (1.8-7.7); PLATELET COUNT (AUTO) 198 K/uL (140-450); RED BLOOD CELL COUNT(AUTO) 3.07 MIL/uL (4.20-5.40); RED CELL DISTRIBUTION WIDTH 14.2 % (11.6-13.7); WHITE BLOOD COUNT (AUTO) 11.4 K/uL (4.8-10.8)
--- NOTE | 2017-10-14 07:25 | NUR ---
REPORT GIVEN TO MARIYA RN DAYSHIFT NURSE FOR CONTINUTY OF CAT
[2017-10-14 07:26] LABS: CARBON DIOXIDE 29.3 mmol/L (21-32); CREATININE 3.4 mg/dL (0.6-1.3); POTASSIUM 3.3 mmol/L (3.5-5.1)
--- NOTE | 2017-10-14 07:26 | NUR ---
RECEIVED REPORT FROM COMMISSARY HELPER RN. PATIENT IS AAOX2-3, HAS NO SIGNS AND SYMPTOMS OF ACUTE DISTRESS NOTED AT THIS TIME. HAS IV TO THE RIGHT HAND 22G, AND RIGHT FA 22G SITE IS CLEAN, DRY, PATENT AND INTACT. HAS AV SHUNT TO THE LEFT UPPER ARM. DISCUSSED PLAN OF CARE WITH PATIENT AND SHE VERBALIZED UNDERSTANDING. SEIZURE AND FALL PRECAUTIONS ARE IN PLACE. BED IN LOWEST POSITION, SIDE RAILS UP X2, CALL LIGHT WITHIN REACH. WILL CONTINUE TO MONITOR.
[2017-10-14 07:33] LABS: MAGNESIUM 1.7 mg/dL (1.8-2.4); PHOSPHORUS 4.4 mg/dL (2.5-4.9)
--- NOTE | 2017-10-14 07:35 | NUR ---
REPORT GIVEN TO MARIYA PUTNAM DAY SHIFT FOR CONTINUTY OF CARE.
[2017-10-14 08:00] VITALS: BP 129/60
[2017-10-14] MEDS ORDERED: ASPIRIN 81 MG TAB.CHEW PO SCH (09:00)
[2017-10-14] MEDS: ASCORBIC ACID 500 MG TAB PO SCH (09:02)
[2017-10-14] MEDS: VIT-B COMP/VIT-C/FOLIC ACID 1 TAB PO SCH (09:03)
[2017-10-14] MEDS: METOPROLOL 25 MG TAB PO SCH (09:03)
[2017-10-14] MEDS: DOCUSATE SODIUM 100 MG GELCAP PO SCH (09:04)
[2017-10-14] MEDS ORDERED: MAG SULF 2000 MG/WATER PREMIX 50 ML IV ONE (09:20)
[2017-10-14] MEDS ORDERED: POTASSIUM CHLORIDE 10 MEQ TABER PO SCH (10:00)
[2017-10-14] MEDS: MAGNESIUM SULFATE 1GM in DEXTROSE 5% 100 ML PREMIX IV SCH ×2 (10:12→11:16)
[2017-10-14] MEDS: INSULIN LISPRO SLIDING SCALE 100 UNITS/ML VIAL SUBQ PRN (11:24)
[2017-10-14 12:00] VITALS: BP 123/62
[2017-10-14 12:08] VITALS: BP 123/62
--- NOTE | 2017-10-14 13:45 | NUR ---
PATIENT REFUSED TO LET ME TAKE PICTURES OF HER WOUNDS. SHE STATED THAT SHE JUST WANTS TO GO HOME.
--- NOTE | 2017-10-14 13:50 | NUR ---
DISCHARGE ORDER IS IN PLACE. GAVE PATIENTS DAUGHTER INSTRUCTIONS TO HAVE PT FOLLOW UP WITH PCP. EDUCATED ON PREVENTION OF INJURIES ESPECIALLY SINCE [facility]. INFORMED HER THAT THERE IS A PRESCRIPTION IN THE DISCHARGE PACKET. DAUGHTER VERBALIZED UNDERSTANDING. REMOVED IV FROM SITE. CATHETER INTACT. REMOVED ID BAND. ALL BELONGINGS ARE WITH THE PATIENT. PATIENT IN STABLE CONDITION. WILL WHEEL HER OUT.
--- NOTE | 2017-10-16 10:41 | NUR ---
CM NOTE FAXED DC SUMMARY TO [facility] [phone] [place] [phone] FAXED DC SUMMARY TO [facility] [phone] PHONE [phone]
== END 2017-10-14 13:50 | disposition home health service (06) | DRG 190 ==
LOC: MED 00:45 → MTU 03:38
PROVIDERS: ADMIT General Practice; ATTEND General Practice
PROC: 5A1D70Z Performance of Urinary Filtration, Intermittent, Less than 6 Hours Per Day (ICD-10-PCS; principal; 2017-10-11)
PROC: 5A1D70Z Performance of Urinary Filtration, Intermittent, Less than 6 Hours Per Day (ICD-10-PCS; 2017-10-13)
DX: I21.A1 Myocardial infarction type 2 (principal); N17.0 Acute kidney failure with tubular necrosis; I50.43 Acute on chronic combined systolic (congestive) and diastolic (congestive) heart failure; E43 Unspecified severe protein-calorie malnutrition; I96 Gangrene, not elsewhere classified; N18.6 End stage renal disease; E11.52 Type 2 diabetes mellitus with diabetic peripheral angiopathy with gangrene; M86.9 Osteomyelitis, unspecified; I24.9 Acute ischemic heart disease, unspecified; E11.65 Type 2 diabetes mellitus with hyperglycemia; E11.22 Type 2 diabetes mellitus with diabetic chronic kidney disease; F03.90 Unspecified dementia, unspecified severity, without behavioral disturbance, psychotic disturbance, mood disturbance, and anxiety; L03.032 Cellulitis of left toe; E87.6 Hypokalemia; E78.5 Hyperlipidemia, unspecified; D63.1 Anemia in chronic kidney disease; E11.319 Type 2 diabetes mellitus with unspecified diabetic retinopathy without macular edema; H54.8 Legal blindness, as defined in USA; I13.2 Hypertensive heart and chronic kidney disease with heart failure and with stage 5 chronic kidney disease, or end stage renal disease; I25.10 Atherosclerotic heart disease of native coronary artery without angina pectoris; I35.0 Nonrheumatic aortic (valve) stenosis; J45.909 Unspecified asthma, uncomplicated; K44.9 Diaphragmatic hernia without obstruction or gangrene; F32.9 Major depressive disorder, single episode, unspecified; E11.69 Type 2 diabetes mellitus with other specified complication; E87.1 Hypo-osmolality and hyponatremia; E83.42 Hypomagnesemia; Z99.2 Dependence on renal dialysis; Z86.73 Personal history of transient ischemic attack (TIA), and cerebral infarction without residual deficits; Z79.899 Other long term (current) drug therapy; Z83.3 Family history of diabetes mellitus; Z68.23 Body mass index [BMI] 23.0-23.9, adult
CPT/HCPCS: 36415; 71045; 73660; 80048; 80053; 80202; 82150; 82306; 82948; 83036; 83605; 83690; 83735; 83880; 84100; 84439; 84443; 84484; 85025; 85610; 85651; 85730; 86140; 87040; 87070; 87075; 87081; 87186; 87205; 90935; 93005; 93925; 93970; 96365; 96366; 96367; 99285; J1644; J1815; J2543; J3370; J3480; J7030; J7060; P9046; Q0092